=== PATIENT | female | born 1955 | race Caucasian/White ===

== ENCOUNTER 2024-12-17 08:54 | Outpatient (CLI) | payer MEDICARE, SELFPAY ==
--- OUTSIDE RECORDS SUMMARY | 2024-12-17 09:02 | XMS_ITS | Encounter Summary ---
Author Organization [employer] ([place], [place], [place], [place]) Address [address] [place] [address] Care Team Providers Care Director Service Name Role Phone Unavailable Primary Care Provider Unavailabl e Encounter Details Date Type Department Care Team (Late st Contact Info) Description 12/06/2019 Transcribed Document [facility] [place] [facility] [place] [address] ProviderWanda MD [address], [place] [id number] Social History Tobacco Use Types Packs/Day Years Used Date Smoking Tobacco: Never Assessed Comments Unknown Sex and Gender Information Value Date Recorded Sex Assigned at Female 10/30/2021 2:48 PM CDT Legal Sex Female 2:48 PM CDT Gender Identity Female 10/30/2021 2:48 PM CDT Sexual Orientation Not on file documented as of this encounter Miscellaneous Notes * Cerner Conversion Note - Wanda ProviderMD - 12/06/2019 12:40 PM CDT Spiritual Care Assessment Entered On: 12/06/2019 13:20 EDT Performed On: 12/06/2019 12:44 EDT by Feliciano Haile Chaplain-Non Cert General Information Referred by : Other: Pre-surgery Ministry Provided to : Patient Feliciano Haile Chaplain-Non Cert - 12/06/2019 13:19 EDT Spiritual Assessment Spiritual Assessment Comment/Summary Points : Supportive pre-surgery visit with patient. Spirital Assessment Comment/Summary Report : SPIRITUAL ASSESSMENT COMMENT/SUMMARY No qualifying data available. Feilciano Haile Chaplain-Non Cert - 12/06/2019 13:19 EDT Interventions Emotional Support : Empathic/Engaged listening, Feelings expressed Spiritual and Hindu : Spiritual/Hindu support provided Feliciano Haile Chaplain-Non Cert - 12/06/2019 13:19 EDT Electronically signed by Srikanth, Bin Conversion Sales Representative [employer] Cerner at 08/21/2022 11:58 AM CDT documented in this encounter Plan of Treatment Not on file documented as of this encounter Visit Diagnoses Not on filedocumented in this encounter
--- OUTSIDE RECORDS SUMMARY | 2024-12-17 09:02 | XMS_ITS | Encounter Summary ---
Author Organization [employer] ([place], [place], [place], [place]) Address [address] [place] [address] Care Team Providers Care Microfilm Duplicating Unit Supervisor Name Role Phone Unavailable Primary Care Provider Unavailabl e Encounter Details Date Type Department Care Team (Late st Contact Info) Description 12/07/2019 Transcribed Document [facility] Family Medicine [facility] [place] [address] ProviderWanda MD [address] [place] [address] Social History Tobacco Use Types Packs/Day Years Used Date Smoking Tobacco: Never Assessed Comments Unknown Sex and Gender Information Value Date Recorded Sex Assigned at Female 10/30/2021 2:48 PM CDT Legal Sex Female 2:48 PM CDT Gender Identity Female 10/30/2021 2:48 PM CDT Sexual Orientation Not on file documented as of this encounter Miscellaneous Notes * Cerner Conversion Note - Wanda ProviderMD - 12/07/2019 8:12 AM CDT [facility] Main OR PostOp Summary Primary Physician: GIULIA NELSON DPM-SUR Finalized Date/Time: 12/07/19 12:20:48 Pt. Name: FELI WILLIAM/Sex: 1955 Female Med Rec #: [id number] Physician: GIULIA NELSON DPM-SUR Financial #: [id number] Pt. Type: O Room/Bed: /1 Admit/Disch: 12/07/19 06:09:00 - Institution: [facility] Main OR PostOp Case Times Entry 1 In PACU II 12/07/19 11:05:00 Ready for PACU II 12/07/19 12:10:00 Discharge Discharge from PACU 12/07/19 12:10:00 II Last Modified By: Cristine Leary Rn 12/07/19 12:20:44 [facility] Main OR PostOp Case Times Audit 12/07/19 12:20:44 Senior Front End Developer: [id number] Modifier: [id number] <+> 1 In PACU II Finalized By: Cristine Leary, Rn Document Signatures Signed By: Cristine Leary Rn 12/07/19 12:20 Electronically signed by Srikanth [facility] Conversion Color Mixer Cerner at 08/21/2022 12:02 PM CDT documented in this encounter Plan of Treatment Not on file documented as of this encounter Visit Diagnoses Not on filedocumented in this encounter
--- OUTSIDE RECORDS SUMMARY | 2024-12-17 09:02 | XMS_ITS | Encounter Summary ---
Author Organization [employer] ([place], [place], [place], [place]) Address [address] [place] [address] Care Team Providers Care R D Internship Name Role Phone Unavailable Primary Care Provider Unavailabl e Encounter Details Date Type Department Care Team (Late st Contact Info) Description 12/07/2019 Transcribed Document [facility] [place] [facility] [place] [address] ProviderWanda MD [address] [place] [address] Social History Tobacco Use Types [...] Conversion Note - Wanda ProviderMD - 12/07/2019 6:10 AM CDT Patient: FELI WILLIAM Age: 64 years Sex: Female : 1955 Associated Diagnoses: None Author: HARRISON IZQUIERDO APRN Chief Complaint R foot pain/heel spur Review of Systems ROS reviewed as documented in chart no change since last seen by surgeon Health Status Allergies: Allergic Reactions (Selected) No Known Allergies, No qualifying data available Current medications: (Selected) Inpatient Medications Ordered Ancef: 2 Gram, 50 mL, 100 mL/Hr, IV Piggyback, PREOP Lactated Ringers Injection intravenous solution 1,000 mL: 20 mL/Hr, IntraVENous bupivacaine 550 mL: 6 mL/Hr, IntraLesional, Stop: 12/10/19 7:14:00 EDT lidocaine 1% preservative-free injectable solution: 0.5 mL, IntraDermal, 1-Time midazolam: 2 mg, IV Push, Q10Min, PRN: Anxiety Documented Medications Documented Metoprolol Succinate ER: 50 mg, Oral, At Bedtime, 0 Refill(s) Myrbetriq: 25 mg, Oral, Daily, 0 Refill(s) buPROPion 150 mg/12 hours (SR) oral tablet, extended release: 1 Tab, Oral, Daily, 0 Refill(s) esomeprazole 49.3 mg oral delayed release capsule: 1 Cap, Oral, Daily, PRN: indigest, 60 Cap, 0 Refill(s) ibuprofen: 800 mg, Oral, Q8H, PRN: as needed for arthritis, 0 Refill(s) zolpidem: 10 mg, Oral, At Bedtime, PRN: as needed for insomnia, 0 Refill(s), Home Medications (6) Active buPROPion 150 mg/12 hours (SR) oral tablet, extended release 150 mg = 1 Tab, Oral, Daily esomeprazole 49.3 mg oral delayed release capsule 49.3 mg = 1 Cap, PRN, Oral, Daily ibuprofen 800 mg, PRN, Oral, Q8H Metoprolol Succinate ER 50 mg, Oral, At Bedtime Myrbetriq 25 mg, Oral, Daily zolpidem 10 mg, PRN, Oral, At Bedtime , Medications (5) Active Scheduled: (2) ceFAZolin/D5w 2 Gram 50 mL, IV Piggyback, PREOP lidocaine 1% *PF* inj 2 mL 0.5 mL, IntraDermal, 1-Time Continuous: (2) bupivacaine 0.25% 550 mL , IntraLesional, 6 mL/Hr lactated ringers 1,000 mL 1,000 mL, IntraVENous, 20 mL/Hr PRN: (1) midazolam 1 mg/1 mL inj 2 mL 2 mg 2 mL, IV Push, Q10Min Problem list: All Problems Wears glasses / SNOMED CT 756645444 / Confirmed Seasonal allergies / SNOMED CT 7023201060 / Confirmed Incontinence / SNOMED CT 51589857 / Confirmed High blood pressure / SNOMED CT 84576739 / Confirmed Hiatal hernia / SNOMED CT 611012702 / Confirmed GERD - Gastro-esophageal reflux disease / SNOMED CT 0284467281 / Confirmed Diverticulitis / SNOMED CT 787365078 / Confirmed At risk for sleep apnea / IMO 21068638 / Confirmed Arthritis / SNOMED CT 4681126 / Confirmed Anxiety / SNOMED CT 61314999 / Confirmed, Active Problems (10) Anxiety Arthritis At risk for sleep apnea Diverticulitis GERD - Gastro-esophageal reflux disease Hiatal hernia High blood pressure Incontinence Seasonal allergies Wears glasses R foot pain/ heel spur Histories Past Medical History: No active or resolved past medical history items have been selected or recorded. Family History: No family history items have been selected or recorded. Procedure history: ureteroscopy. hysterectomy. lap cholecystectomy. BTL. TMJ. Physical Examination VS/Measurements Vital Signs/Vital Measures 12/07/2019 6:20 EDT Systolic Blood Pressure 139 mmHg Diastolic Blood Pressure 78 mmHg Temperature Source Temporal artery scanning Temperature Mode Fahrenheit Temperature, Fahrenheit 97.4 Deg F Heart Rate Monitored 69 bpm Respiratory Rate 20 Breaths/Min Oxygen Saturation 99 % Oxygen Therapy Mode Room air Vital Measurements Comment taken by John JIMENEZ and left for me to document per unit process 12/06/2019 12:26 EDT Blood Pressure Location Arm, right upper Blood Pressure Source Non-Invasive BP Device Blood Pressure Position Sitting Temperature Source Temporal artery scanning Temperature Mode Fahrenheit Temperature, Fahrenheit 96 Deg F LOW Clinical Temperature, C 35.6 Deg C Pulse Method Pulse Oximetry Peripheral Pulse Rate 70 bpm Oxygen Saturation 100 % Oxygen Therapy Mode Room air , Vitals Signs (last 24 hrs) Last Charted Minimum Maximum Temp 97.4 (DEC 06 06:20) L 96 (DEC 05:) 97.4 (DEC 06 06:20) Mon HR 69 (DEC 06 06:20) 69 (DEC 06 06:20) 69 (DEC 06 06:20) Periph HR 70 (DEC 05:26) 70 (DEC 05:) 70 (DEC 05:) Resp Rate 20 (DEC 06 06:20) 20 (DEC 06 06:20) 20 (DEC 06 06:20) SBP 139 (DEC 06 06:20) 139 (DEC 06 06:20) 139 (DEC 06 06:20) DBP 78 (DEC 06 06:20) 78 (DEC 06 06:20) 78 (DEC 06 06:20) SpO2 99 (DEC 06 06:20) 99 (DEC 06 06:20) 100 (DEC 05 12:26) , Measurements from flowsheet : Measurements 12/06/2019 12:26 EDT Height Source Measured Height Entry Format [place] Height/Length, OMANI (ft) 4 ft Height/Length OMANI 11.5 Inch CLINICALHEIGHT 151.13 cm [place] Body Weight 44 kg Weight Source Standing scale Weight Entry Format [place] Weight [place] lb 202 lb CLINICALWEIGHT 91.82 kg Body Surface Area (BSA) 1.86 m2 Body Mass Index 40.2 kg/m2 >HHI General: Alert and oriented, No acute distress, morbid obesity. Eye: Pupils are equal, round and reactive to light, Extraocular movements are intact, glasses/strabismus L eye. HENT: Normocephalic, Normal hearing. Neck: Supple, Non-tender. Respiratory: Lungs are clear to auscultation, Respirations are non-labored. Cardiovascular: Normal rate, Regular rhythm, No murmur, No gallop, No edema. Gastrointestinal: Soft, Non-tender. Genitourinary: No costovertebral angle tenderness. Lymphatics: No lymphadenopathy neck, axilla, groin. Musculoskeletal: Normal strength, painful ROM R heel. Integumentary: Warm, Dry, abrasion R middle finger with bandaid POA. Neurologic: Alert, Oriented. Psychiatric: Cooperative, Appropriate mood & affect. Review / Management Results review: Labs (Last four charted values) WBC 6.5 (DEC 05) HB 13.8 (DEC 05) HCT 41.9 (DEC 05) Plt 236 (DEC 05) Na 140 (DEC 05) K 4.1 (DEC 05) Cl 109 (DEC 05) CO2 30 (DEC 05) BUN 12 (DEC 05) Cr 0.80 (DEC 05) Glu R 94 (DEC 05) Ca 9.0 (DEC 05) AST 20 (DEC 05) ALT 30 (DEC 05) ALK P 84 (DEC 05) T Bili 0.7 (DEC 05) PTN 7.5 (DEC 05) ALB 3.8 (DEC 05) , Lab results 12/06/2019 12:49 EDT Sodium Level 140 mmol/L Potassium Level 4.1 mmol/L Chloride Level 109 mmol/L Carbon Dioxide Level 30 mmol/L Anion Gap 5 LOW Glucose Level 94 mg/dL Blood Urea Nitrogen 12 mg/dL CREATININE 0.80 mg/dL eGFR >60 mL/min/1.73m2 eGFR NonAfrican >60 mL/min/1.73m2 Bun/Creatinine 15.0 Calcium Level 9.0 mg/dL Protein Total 7.5 Gram/dL Albumin Level 3.8 Gram/dL Globulin 3.7 Gram/dL A/G Ratio 1.0 LOW Bilirubin Total 0.7 mg/dL Alk Phos 84 Units/Liter AST 20 Units/Liter ALT 30 Units/Liter WBC 6.5 K/uL RBC 4.56 Million/uL Hgb 13.8 g/dL Hct 41.9 % MCV 91.9 fL MCH 30.3 pg MCHC 32.9 Gram/dL Platelet Count 236 K/uL MPV 10.9 fL RDW 14.2 % Neut % 59.8 % Neut # 3.89 K/uL Lymph % 27.0 % Lymph # 1.76 x10(3)/uL Morgan % 9.8 % HI Morgan # 0.64 K/uL Eos % 2.9 % Eos # 0.19 x10(3)/uL Baso % 0.3 % Baso # 0.02 x10(3)/uL Slide Review No IG# 0.01 x10(3)/uL IG% 0.20 % . Impression and Plan Condition: Stable. documented in this encounter Plan of Treatment Not on file documented as of this encounter Visit Diagnoses Not on filedocumented in this encounter
--- OUTSIDE RECORDS SUMMARY | 2024-12-17 09:02 | XMS_ITS | Encounter Summary ---
Author Organization [employer] ([place], [place], [place], [place]) Address [address] [place] [address] Care Team Providers Care Wall Mirror Department Supervisor Name Role Phone Unavailable Primary Care Provider Unavailabl e Encounter Details Date Type Department Care Team (Late st Contact Info) Description 12/07/2019 Transcribed Document [facility] [place] [facility] [place] [address] ProviderWanda MD [address] [place] [address] Social History Tobacco Use Types [...] Wanda ProviderMD - 12/07/2019 8:12 AM CDT [facility] Main OR PACU Summary Primary Physician: GIULIA NELSON DPM-SUR Finalized Date/Time: 12/07/19 11:22:34 Pt. Name: FELI WILLIAM/Sex: 1955 Female Med Rec #: [id number] Physician: GIULIA NELSON DPM-SUR Financial #: [id number] Pt. Type: O Room/Bed: /1 Admit/Disch: 12/07/19 06:09:00 - Institution: [facility] Main OR PACU I Case Times Entry 1 In PACU I 12/07/19 09:37:00 Ready for PACU 12/07/19 10:15:00 Discharge Discharge from PACU 12/07/19 11:00:00 I Last Modified By: NOEL MULLEN RN 12/07/19 11:22:01 [facility] Main OR PACU Acuity Entry 1 Start Time 12/07/19 10:15:00 Stop Time 12/07/19 11:00:00 Acuity Level [facility] PACU Acuity I Last Modified By: NOEL MULLEN RN 12/07/19 11:22:31 Finalized By: NOEL MULLEN, RN Document Signatures Signed By: NOEL MULLEN RN 12/07/19 11:22 Electronically signed by Srikanth [facility] Conversion Survey Manager Cerner at 08/21/2022 12:11 PM CDT documented in this encounter Plan of Treatment Not on file documented as of this encounter Visit Diagnoses Not on filedocumented in this encounter
--- OUTSIDE RECORDS SUMMARY | 2024-12-17 09:02 | XMS_ITS | Encounter Summary ---
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 Phone Unavailable Primary Care Provider Unavailabl e Encounter Details Date Type Department Care Team (Late st Contact Info) Description 12/07/2019 Transcribed Document [facility] [place] [facility] [place] [address] ProviderWanda MD [address] [place] [address] Social History Tobacco Use Types Packs/Day Years Used Date Smoking Tobacco: Never Assessed Comments Unknown Sex and Gender Information Value Date Recorded Sex Assigned at Female 10/30/2021 2:48 PM CDT Legal Sex Female 2:48 PM CDT Gender Identity Female 10/30/2021 2:48 PM CDT Sexual Orientation Not on file documented as of this encounter Miscellaneous Notes * Cerner Conversion Note - Wanda Gee MD - 12/07/2019 11:56 AM CDT Patient Education Materials Follows: General Anesthesia, Adult, Care After This sheet gives you information about how to care for yourself after your procedure. Your health care provider may also give you more specific instructions. If you have problems or questions, contact your health care provider. What can I expect after the procedure? After the procedure, the following side effects are common: ??? Pain or discomfort at the IV site. ??? Nausea. ??? Vomiting. ??? Sore throat. ??? Trouble concentrating. ??? Feeling cold or chills. ??? Weak or tired. ??? Sleepiness and fatigue. ??? Soreness and body aches. These side effects can affect parts of the body that were not involved in surgery. Follow these instructions at home: For at least 24 hours after the procedure: ??? Have a responsible adult stay with you. It is important to have someone help care for you until you are awake and alert. ??? Rest as needed. ??? Do not: ? Participate in activities in which you could fall or become injured. ? Drive. ? Use heavy machinery. ? Drink alcohol. ? Take sleeping pills or medicines that cause drowsiness. ? Make important decisions or sign legal documents. ? Take care of children on your own. Eating and drinking ??? Follow any instructions from your health care provider about eating or drinking restrictions. ??? When you feel hungry, start by eating small amounts of foods that are soft and easy to digest (bland), such as toast. Gradually return to your regular diet. ??? Drink enough fluid to keep your urine pale yellow. ??? If you vomit, rehydrate by drinking water, juice, or clear broth. General instructions ??? If you have sleep apnea, surgery and certain medicines can increase your risk for breathing problems. Follow instructions from your health care provider about wearing your sleep device: ? Anytime you are sleeping, including during daytime naps. ? While taking prescription pain medicines, sleeping medicines, or medicines that make you drowsy. ??? Return to your normal activities as told by your health care provider. Ask your health care provider what activities are safe for you. ??? Take mbva-qbr-ciqtehl and prescription medicines only as told by your health care provider. ??? If you smoke, do not smoke without supervision. ??? Keep all follow-up visits as told by your health care provider. This is important. Contact a health care provider if: ??? You have nausea or vomiting that does not get better with medicine. ??? You cannot eat or drink without vomiting. ??? You have pain that does not get better with medicine. ??? You are unable to pass urine. ??? You develop a skin rash. ??? You have a fever. ??? You have redness around your IV site that gets worse. Get help right away if: ??? You have difficulty breathing. ??? You have chest pain. ??? You have blood in your urine or stool, or you vomit blood. Summary ??? After the procedure, it is common to have a sore throat or nausea. It is also common to feel tired. ??? Have a responsible adult stay with you for the first 24 hours after general anesthesia. It is important to have someone help care for you until you are awake and alert. ??? When you feel hungry, start by eating small amounts of foods that are soft and easy to digest (bland), such as toast. Gradually return to your regular diet. ??? Drink enough fluid to keep your urine pale yellow. ??? Return to your normal activities as told by your health care provider. Ask your health care provider what activities are safe for you. This information is not intended to replace advice given to you by your health care provider. Make sure you discuss any questions you have with your health care provider. Document Released: 07/28/2001 Document Revised: 04/24/2018 Document Reviewed: 12/05/2017 [employer] Patient Education ? 2020 [employer] Achilles Tendon Tear Repair, Care After This sheet gives you information about how to care for yourself after your procedure. Your health care provider may also give you more specific instructions. If you have problems or questions, contact your health care provider. What can I expect after the procedure? After the procedure, it is common to have: ??? Numbness in your foot. This should go away within 24 hours. ??? Pain. It may take 6 months before you can return to your regular activity level. However, complete recovery can take a year or longer. Follow these instructions at home: If you have a splint: ??? Wear the splint as told by your health care provider. Remove it only as told by your health care provider. ??? Loosen the splint if your toes tingle, become numb, or turn cold and blue. ??? Keep the splint clean. ??? If the splint is not waterproof: ? Do not let it get wet. ? Cover it with a watertight covering when you take a bath or a shower. If you have a cast: ??? Do not put pressure on any part of the cast or splint until it is fully hardened. This may take several hours. ??? Do not stick anything inside the cast to scratch your skin. Doing that increases your risk of infection. ??? Check the skin around the cast every day. Tell your health care provider about any concerns. ??? You may put lotion on dry skin around the edges of the cast. Do not put lotion on the skin underneath the cast. ??? Keep the cast clean. ??? If the cast is not waterproof: ? Do not let it get wet. ? Cover it with a watertight covering when you take a bath or a shower. Incision care ??? Follow instructions from your health care provider about how to take care of your incision. Make sure you: ? Wash your hands with soap and water before you change your bandage (dressing). If soap and water are not available, use hand industrial sales engineer. ? Change your dressing as told by your health care provider. ? Leave stitches (sutures) or pawel in place. These skin closures may need to stay in place for 2 weeks or longer. ??? Check your incision area every day for signs of infection. Check for: ? Redness, swelling, or pain. ? Fluid or blood. ? Warmth. ? Pus or a bad smell. Medicines ??? Take pain medicines only as told by your health care provider. ??? Do not take hagr-far-eqtjzeh medicines unless your health care provider says it is okay. ??? To prevent or treat constipation while you are taking prescription pain medicine, your health care provider may recommend that you: ? Drink enough fluid to keep your urine clear or pale yellow. ? Take ycfy-ifn-fyyoaqg or prescription medicines. ? Eat foods that are high in fiber, such as fresh fruits and vegetables, whole grains, and beans. ? Limit foods that are high in fat and processed sugars, such as fried and sweet foods. Activity ??? Do not walk on or put weight on your injured leg. ??? Use crutches or another walking aid. ??? Follow your health care provider's instructions on how to move your ankle and how much weight you can put on your leg. If you have a cast or splint, you should receive these instructions after it is removed. ??? Follow your rehabilitation plan. Do exercises as told by your health care provider or physical therapist. Between 2?6 weeks after surgery, your surgeon may recommend: ? Putting some weight on your leg while wearing your walking boot or cast. ? Doing ankle motion exercises. ??? Around 6 weeks after surgery, your surgeon may recommend: ? Putting some weight on your leg without the assistance of a boot or cast. ? Starting physical therapy to improve ankle motion and to strengthen muscles in your leg. ??? Avoid stretching your Achilles tendon for at least 6 months or as told by your physical therapist. ??? Do not return to physical activity or sports until you are cleared by your health care provider or physical therapist. Driving ??? Do not drive or operate heavy machinery while taking prescription pain medicine. ??? If you have a cast, splint, or boot on your leg, ask your health care provider when it is safe for you to drive. General instructions ??? Raise (elevate) your leg above the level of your heart while you are sitting or lying down. ??? Do not take baths, swim or use a hot tub until your health care provider approves. ??? If directed, put ice on the injured area: ? If you have a removable splint, remove it as told by your health care provider. ? Put ice in a plastic bag. ? Place a towel between your skin and the bag. ? Leave the ice on for 20 minutes, 2?3 times a day. ??? See a physical therapist if directed by your health care provider. A physical therapist can help you regain ankle motion and strengthen your leg muscles. ??? Keep all follow-up visits as told by your health care provider. This is important. If you have a cast or splint, you should see your health care provider about 2 weeks after surgery to have it removed. If you have stitches, your health care provider will also take them out during this time. Contact a health care provider if: ??? You have chills. ??? You have a fever. ??? Your pain medicine is not working. ??? You have persistent numbness or burning. ??? You have redness, swelling, or pain around your incision. ??? You have fluid or blood coming from your incision. ??? Your incision feels warm to the touch. ??? You have pus or a bad smell coming from your incision. ??? You feel like your cast or splint is too tight. ??? You are unable to wiggle your toes. ??? You have a cast or splint and have increased pain. ??? You have numbness or tingling in your foot or toes. ??? You notice cracks or soft spots on your cast. Get help right away if: ??? You have swelling, pain, or numbness that is getting worse. ??? You are bleeding through your cast or splint. ??? You have chest pain. ??? You have trouble breathing. Summary ??? After your procedure, it is common to have pain and numbness in your foot. Numbness should go away within 24 hours after surgery. ??? If you have a splint, loosen it if your toes tingle, become numb, or turn cold and blue. Keep the splint clean and dry. ??? If you have a cast, do not put pressure on it until it hardens. To avoid infections, do not stick objects under the cast to scratch the skin and do not put lotion under the cast. Keep the cast clean and dry. ??? Follow your health care provider's instructions about caring for your incision, avoiding some activities, taking medicines, and keeping follow-up visits. This information is not intended to replace advice given to you by your health care provider. Make sure you discuss any questions you have with your health care provider. Document Released: 12/25/2004 Document Revised: 02/18/2019 Document Reviewed: 04/04/2017 [employer] Patient Education ? 2020 [employer] documented in this encounter Plan of Treatment Not on file documented as of this encounter Visit Diagnoses Not on filedocumented in this encounter
--- OUTSIDE RECORDS SUMMARY | 2024-12-17 09:02 | XMS_ITS | Clinical Summary ---
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 90 tablet 1 7 Active acyclovir (ZOVIRAX) 800 MG tablet Take 1 tablet by mouth 3 (Three) Times a Day. X 5 days as needed 60 tablet 2 7 Active vitamin D (ERGOCALCIFEROL) 97908 units capsule capsuleIndicatio ns:Vitamin D deficiency TAKE ONE CAPSULE BY MOUTH EVERY WEEK 4 capsule 8 Active mupirocin (BACTROBAN) 2 % ointmentIndicati ons:Impetigo Apply topically to the appropriate area as directed 3 (Three) Times a Day. 22 g 9 Active buPROPion SR (WELLBUTRIN SR) 150 MG 12 hr tablet Take 1 tablet by mouth 2 (Two) Times a Day. 60 tablet 5 9 Active hydrOXYzine (ATARAX) 25 MG tabletIndication s:Cellulitis of left upper extremity Take 1 tablet by mouth 3 (Three) Times a Day As Needed for Itching. 30 tablet 9 Active Mirabegron ER (MYRBETRIQ) 25 MG tablet sustained-releas e 24 hour 24 hr tablet Take 1 tablet by mouth Daily. 30 tablet 0 Active conjugated estrogens (PREMARIN) 0.625 MG/GM vaginal creamIndications :Vaginal atrophy Insert 1.0 grams intravaginally, twice a week 30 g 3 0 Active Vortioxetine HBr (Trintellix) 10 MG tabletIndication s:Depression with anxiety Take 10 mg by mouth Daily. 30 tablet 2 0 Active [employer] D3 50 MCG (2000 UT) capsuleIndicatio ns:Vitamin D deficiency TAKE 2,000 UNITS BY MOUTH DAILY. 30 capsule 1 0 Active IBU 800 MG tabletIndication s:Chronic pain of both knees TAKE 1 TABLET EVERY 8 HOURS NEEDED FOR MILD PAIN 180 tablet 1 Active zolpidem (AMBIEN) 10 MG tabletIndication s:Primary insomnia Take 1 tablet by mouth At Night As Needed for Sleep. 90 tablet 1 Active metoprolol succinate XL (TOPROL-XL) 50 MG 24 hr tabletIndication s:Essential hypertension TAKE 1 TABLET EVERY DAY 90 tablet 2 Active esomeprazole (nexIUM) 40 MG capsuleIndicatio ns:Gastroesophag eal reflux disease Take 1 capsule by mouth Before Breakfast. 90 capsule 2 Active Active Problems Problem Noted Date Diagnosed Date Menopause 10/09/2017 Vaginal atrophy 10/09/2017 Urethrocele, female 10/09/2017 MALATHI (stress urinary incontinence, female) 2017 Vitamin D deficiency 03/15/2016 Depression 03/15/2016 Assessment & Plan (05/09/2016 4:34 PM EST): Rec take the Wellbutrin BID and see if helps. Call if not better or side effects Anxiety 03/15/2016 Urinary tract infection without hematuria 2015 Vulvar candidiasis 10/18/2015 Encounter for removal of sutures 10/18/2015 Essential hypertension 09/22/2015 Assessment & Plan (05/09/2016 4:34 PM EST): Hypertension is improving with treatment. Continue current treatment regimen. Continue current medications. Blood pressure will be reassessed at the next regular appointment. Insomnia 09/22/2015 Immunizations Immunization Administration Dates Next Due Hepatitis A 05/06/2019 flucelvax quad pfs =>4 YRS 03/25/2019 Family History Medical History Relation Name Comments Heart attack Brother Cancer Father Heart attack Mother Hypertension Mother Atrial fibrillation Sister 1 Heart attack Sister 2 Relation Name Status Comments Brother Father Mother Sister 1 Sister 2 Social History Tobacco Use Types Packs/Day Years Used Date Smoking Tobacco: Never Smokeless Tobacco: Never Alcohol Use Standard Drinks/Week Comments No 0 (1 standard drink = 0.6 oz pur e alcohol) PHQ-2 Answer Date Recorded PHQ-2 Score 7 12/08/2018 Abuse Screen Answer Date Recorded Unsafe at Home or Work/School Not on file Feels Threatened by Someone? Not on file 01/2023 Does Anyone Keep You from Co ntacting Others or Doint Things Outside the Home? Not on file 02/10/2023 Physical Sign of Abuse Present Not on file 1 Housing Stability Answer Date Recorded Current Living Arrangements Not on file 01/2023 Potentially Unsafe Housing Conditions Not on michelle e 02/10/2023 Family and Community Support Answer Justin e Recorded Help with Day-to-Day Activities Not on file 02/10/2023 Lonely or Isolated Not on file 02/10/2023 Employment Answer Date Recorded Do you want help finding or keeping work or a casper b? Not on file 02/10/2023 Disabilities Answer Date Recorded Concentrating, Remembering, or Making Decisions Difficulty Not on file 02/10/2023 Doing Errands Independently Difficulty Not on fi le 02/10/2023 Education Answer Date Recorded Help with school or training? Not on file Preferred Language Not on file 02/10/2023 Comments No Sex and Gender Information Value Date Recorded Sex Assigned at Not on file Legal Sex Female 11:38 AM EDT Gender Identity Not on file Sexual Orientation Not on file Last Filed Vital Signs Vital Sign Reading Time Taken Comments Blood Pressure 126/76 07/12/2019 9:14 AM EDT Pulse 76 07/12/2019 9:14 AM EDT Temperature 36.3 C (97.4 F) 07/12/2019 9:14 AM EDT Respiratory Rate 18 07/12/2019 9:14 AM EDT Oxygen Saturation 99% 03/25/2019 11:55 AM EST Inhaled Oxygen Concentration - - Weight 93.4 kg (206 lb) 07/12/2019 9:14 AM EDT Height 152.4 cm (5') 07/12/2019 9:14 AM EDT Body Mass Index 40.23 07/12/2019 9:14 AM EDT Plan of Treatment Health Maintenance Due Date Last Done Comments DXA SCAN 1956 TDAP/TD VACCINES (1 - Tdap) 10/13/1975 COLOGUARD 2001 COLON CANCER SCREENING 5 YEA R SIGMOIDOSCOPY 2001 CT COLONOGRAPHY 2001 FECAL OCCULT BLOOD TEST 2001 FIT Testing (1 year) 2001 Pneumococcal Vaccine 50+ (1 of 1 - PCV) 2006 ZOSTER VACCINE (1 of 2) 2006 COLONOSCOPY 05/05/2015 05/05/2005 COLORECTAL CANCER SCREENING 05/05/2015 ANNUAL PHYSICAL 08/31/2015 HEPATITIS C SCREENING 08/31/2015 MAMMOGRAM 05/20/2016 05/20/2014 COVID-19 Vaccine ( season) 2024 INFLUENZA VACCINE 02/02/2025 03/25/2019, , 07/09/2018 (Declined) Procedures Procedure Name Priority Date/Time Associated Diagnosis Comments SCANNED - INFLUENZA 03/25/2019 MAMMO SCREENING BILATERAL W CAD Routine 05/20/2014 10:03 AM EST from Last 3 Months or Most Recently Relevant to Health Maintenance Results * SCANNED - INFLUENZA (03/25/2019) [facility] [place] CHART REVIEW TABS Final Re sult * MAMMOGRAPHY SCREENING BILATERAL (05/20/2014 10:03 AM EST) Anatomical Region Laterality Modality Breast Bilateral Mammography 05/20/2014 10:0 3 AM EST Narrative 05/20/2014 12:40 PM EST HISTORY: Screening Mammography. Prior mammograms are not available for comparison Low Dose full field Digital Breast Tomosynthesis examination was performed with 2D and 3D acquisitions. Examination is read in conjunction with computer aided detection. FINDINGS: There are scattered areas of fibroglandular density. No suspicious masses, microcalcifications or areas of architectural distortion are present. IMPRESSION- Negative bilateral mammogram. RECOMMENDATION: Continue annual screening mammography. BI-RADS CATEGORY I, NEGATIVE. CAD was utilized. The standard false-negative rate of mammography is between 10 and 25%. Complex patterns or increased breast density will markedly elevate the false-negative rate of mammography. A letter, in lay terminology, with the results of this exam will be mailed to the patient. Reading Radiologist- CADE QUIGLEY Releasing Radiologist- CADE QUIGLEY Released Date Time- 05/20/14 1242 [employer] 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
--- OUTSIDE RECORDS SUMMARY | 2024-12-17 09:02 | XMS_ITS | Encounter Summary ---
Author Organization [employer] ([place], [place], [place], [place]) Address [address] [place] [address] Care Team Providers Care [employer] Name Role Phone Unavailable Primary Care Provider Unavailabl e Encounter Details Date Type Department Care Team (Late st Contact Info) Description 12/07/2019 Transcribed Document [facility] [place] [facility] [place] [address] ProviderWanda MD [address] [place] [id number] Social History Tobacco Use Types Packs/Day [...] Conversion Note - Wanda ProviderMD - 12/07/2019 9:52 AM CDT Patient: FELI WILLIAM Age: 64 Years Sex: Female : 1955 *Operation Resection of retrocalcaneal exostosis with detachment and reattachment of achilles tendon right foot and application of allograft Resection of retrocalcaneal bursa right foot Indication for Surgery This 64-year-old female patient presented to clinic with long-standing history of pain to her right calcaneus and achilles tendon. She had tried several conservative measures including modifying activity, physical therapy, anti-inflammatories and immobilization, as well as modifying shoe gear. She underwent radiographs and MRI which demonstrated a Angy's exostosis to her right calcaneus with tendonitis to the achilles tendon. I discussed with her conservative and surgical treatment options in detail. I discussed with her the risks and benefits of each treatment option. I discussed the complications of each treatment option. All questions were answered. No guarantees were given. She has elected for surgical intervention for correction of this problem. She presents today for resection of the exostosis. Physical exam: Vascular: DP and PT pulses palpable +2 out of 4 to bilateral feet. Capillary refill time is noted to be brisk to the digits of bilateral feet. Dermatological: No open lesions noted. Mild diffuse edema is noted to bilateral lower extremities. Neurological: Protective sensation grossly intact to bilateral lower extremities. Light touch sensation is noted to bilateral lower extremities. Musculoskeletal: Pain on palpation noted to the posterior aspect of the right calcaneus at the posterior superior aspect. Exostosis is noted on palpation to the posterior superior calcaneus. Pain on palpation to the insertion of the Achilles tendon the right foot. All lower extremity muscle groups rate +5 out of 5 in strength to bilateral lower extremities. 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 I discussed and reviewed all possible risks, benefits and complications of the procedure. All questions were answered. No guarantees were given. The consent was signed and charted. The operative foot was confirmed and marked. In the preoperative area, the patient then received a popliteal nerve block to the right lower extremity. Following administration of the block, the patient was transported from the preoperative holding area to the operating room and placed in the operative room table. General anesthesia was administered by the anesthesiologist. The patient was then placed in the prone position on the OR table. A pneumatic thigh tourniquet was applied over copious amounts of padding just above the right thigh. The right lower extremity was then prepped using ChloraPrep and draped in normal sterile fashion. Timeout was called and the patient and the procedure were confirmed. Right lower extremity was then elevated and exsanguinated using an Esmarch and the pneumatic thigh tourniquet was inflated to 300 mmHg. At this time attention was directed to the posterior aspect of the right foot and ankle where there is noted to be a prominent exostosis on palpation. The exostosis was again confirmed using intraoperative fluoroscopy. Next utilizing a 15 blade, a linear incision was made approximate 5 Center meters in length along the lateral aspect of the Achilles tendon traversing medially and then traversing again linearly at the medial aspect the calcaneus. Care was taken to cauterize all bleeders as deemed necessary. All neurovascular structures were handled with care. A delicate dissection was then carried out using combination of blunt and sharp dissection and retraction was utilized by suturing skin in a no touch technique. Dissection was then carried out to the level of the Achilles tendon. At this time, using a 15 blade, the peritenon was carefully dissected out medially and laterally off of the Achilles tendon. Next utilizing a 15 blade, the Achilles tendon was cut centrally and then split in a curtain approach medially and laterally carefully removing it from the posterior superior aspect of the calcaneus. On visualization, there is noted to be a prominent exostosis in the posterior superior lateral aspect of the calcaneus. There is also noted to be a prominent retrocalcaneal bursa which was carefully dissected and removed. This is passed the back table be sent for pathological analysis. Utilizing an osteotome and mallet, the exostosis was carefully resected, then freed from soft tissue and passed the back table. Following this, the bony contours of the calcaneus were smoothed to an even finish using the reciprocating rasp. The incision site was irrigated with copious amounts of sterile saline solution. There is noted to be smooth bony contours and this was confirmed using intraoperative fluoroscopy. Next, the Achilles tendon was carefully re-anchored to the calcaneus utilizing the Arthrex speed bridge technique and fiber tape. Utilizing this, anchors were drilled and placed into the posterior aspect of the calcaneus and then the Achilles tendon was brought to appropriate tension before being firmly anchored into the posterior aspect of the calcaneus. There is noted to be free and smooth range of motion when the ankle joint was put through range of motion after re-anchoring the Achilles tendon. Incision site was again irrigated with copious amounts of sterile saline solution. The allograft was then utilized and carefully sutured into the Achilles tendon at the repair site using 3-0 Vicryl. 100% of the allograft was utilized and 0% of the allograft was wasted. At this time the incision site was deemed adequate for closure. A centralized portion of the Achilles tendon was repaired utilizing 2-0 Vicryl. The peritenon was repaired using 3-0 Vicryl. Subcutaneous tissues reapproximated using 3-0 Vicryl. Skin was reapproximated using 3-0 Prolene. Incision site was then dressed using silver dressing, 4 x 4 gauze and Kerlix to the right foot. The pneumatic thigh tourniquet was then deflated and instantaneous perfusion was noted to the digits of the right foot. At this time in the perioperative area, a posterior splint was applied over copious amounts of padding to the right lower extremity. The patient was then awoken from anesthesia and tolerated the procedure and anesthesia well. The patient was then transported to the postoperative area vital signs stable and vascular status intact. In the postoperative area the patient received oral and written postoperative instructions. The patient will remain nonweightbearing all times to the right foot using a scooter and crutches. The patient will follow-up in my office in 1 week. Anesthesia General ADONIS DELGADO MD-ANS (Anesthesiologist) General ADONIS DELGADO MD-ANS (Anesthesiologist) *Estimated Blood Loss 10 cc *Findings Hemostasis: Thigh tourniquet 300 mm hg Materials: Arthrex speed bridge system, Stravix allograft 3 x 6 cm Injectable: None *Specimen(s) Retrocalcaneal bursa right foot Complications None Technique Condition: stable Date of Service Date/Time of Service SN - Proc - Start Time: 12/07/19 08:12:00 (12/07/19 08:13:26) SN - Proc - Start Time: 12/07/19 08:12:00 (12/07/19 08:13:26) documented in this encounter Plan of Treatment Not on file documented as of this encounter Visit Diagnoses Not on filedocumented in this encounter
--- OUTSIDE RECORDS SUMMARY | 2024-12-17 09:02 | XMS_ITS | Clinical Summary ---
Author Organization [employer] ([place], [place], [place], [place]) Address [address] [place] [address] Care Team Providers Care Head Worker Name Role Phone Unavailable Primary Care Provider Unavailabl e Social History Tobacco Use Types Packs/Day Years Used Date Smoking Tobacco: Never Assessed Comments Unknown Sex and Gender Information Value Date Recorded Sex Assigned at Female 10/30/2021 2:48 PM CDT Legal Sex Female 2:48 PM CDT Gender Identity Female 10/30/2021 2:48 PM CDT Sexual Orientation Not on file Plan of Treatment Not on file
--- OUTSIDE RECORDS SUMMARY | 2024-12-17 09:02 | XMS_ITS | Encounter Summary ---
Author Organization [employer] ([place], [place], [place], [place]) Address [address] [place] [address] Care Team Providers Care Manager Child Name Role Phone Unavailable Primary Care Provider Unavailabl e Encounter Details Date Type Department Care Team (Late st Contact Info) Description 12/06/2019 Transcribed Document [facility] [place] Medicine [facility] [place] [address] ProviderWanda MD [address] [place] [address] Social History Tobacco Use Types Packs/Day Years Used Date Smoking Tobacco: Never Assessed Comments Unknown Sex and Gender Information Value Date Recorded Sex Assigned at Female 10/30/2021 2:48 PM CDT Legal Sex Female 2:48 PM CDT Gender Identity Female 10/30/2021 2:48 PM CDT Sexual Orientation Not on file documented as of this encounter Miscellaneous Notes * Cerner Conversion Note - Historical ProviderMD - 12/06/2019 12:26 PM CDT PAT Adult Entered On: 12/06/2019 12:40 EDT Performed On: 12/06/2019 12:26 EDT by MEREDITH FELIX RN Vital Measurements Temperature Source : Temporal artery scanning Temperature Mode : Fahrenheit Temperature, Fahrenheit : 96 Deg F (LOW) Clinical Temperature, C : 35.6 Deg C Pulse Method : Pulse Oximetry Peripheral Pulse Rate : 70 bpm Blood Pressure Location : Arm, right upper Blood Pressure Source : Non-Invasive BP Device Blood Pressure Position : Sitting Oxygen Saturation : 100 % Oxygen Therapy Mode : Room air MEREDITH FELIX RN - 12/06/2019 13:07 EDT Pain Assessment Pain Assessment : Initial assessment Pain Scale Goal : 6 MEREDITH FELIX RN - 12/06/2019 13:07 EDT Height and Weight, Clinical Dosing Height Source : Measured Height Entry Format : [place] Height, Feet : 4 ft(Converted to: 122 cm, 48 Inch) Height, Inches : 11.5 Inch(Converted to: 0 ft 12 Inch, 29.21 cm) Clinical Height : 151.13 cm Weight Source : Standing scale Weight Entry Format : [place] Clinical Dosing Weight : 91.82 kg Weight, Pounds : 202 lb Body Surface Area (BSA) : 1.86 m2 Body Mass Index : 40.2 kg/m2 (>HHI) [place] Body Weight : 44 kg MEREDITH FELIX RN - 12/06/2019 12:26 EDT Health Histories Smoking Status : Never (less than 100 in lifetime; none in last 30 days) Smokeless Tobacco Status : Never MEREDITH FELIX RN - 12/06/2019 12:26 EDT Social History (As Of: 12/06/2019 12:40:46 EDT) Tobacco: Never (less than 100 in lifetime) Smoking Status. Never Smokeless Tobacco Status. None Smokeless Tobacco Use History. (Last Updated: 12/06/2019 12:27:45 EDT by MEREDITH FELIX RN) Alcohol: Alcohol Use History No. (Last Updated: 12/06/2019 12:27:50 EDT by MEREDITH FELIX RN) Substance Abuse: Drug Use Hx: No. Use in Last 12 Months: No. (Last Updated: 12/06/2019 12:27:55 EDT by MEREDITH FELIX RN) Home/Environment: Lives with Spouse. Living situation: Home/Independent. (Last Updated: 12/06/2019 12:31:33 EDT by MEREDITH FELIX RN) Infectious Disease History Has the patient ever been tested for COVID-19? : Yes, Patient stated results Negative Where was the COVID-19 Testing completed? : [facility] Date of COVID-19 test known? : Yes Does patient have symptoms of COVID-19? : No COVID19 Screening : No Experiencing Infectious Disease Symptoms : No symptoms Physical contact outside [place] in the last 30 days : No Infectious Disease History : Chicken pox/Shingles Tuberculosis Symptoms : None MEREDITH FELIX RN - 12/06/2019 12:26 EDT COVID19 PreProcedure Screening Is this an Emergent or Add on Procedure? : No MEREDITH FELIX RN - 12/06/2019 12:26 EDT Anesthesia/Transfusion History Family History of Anesthesia Reaction : Prior transfusion without reaction Blood Transfusion Acceptable to Patient : Yes Transfusion History : Prior anesthesia reaction Type of Anesthesia Reaction : Excessive somnolence Family History of Anesthesia Reaction : None MEREDITH FELIX RN - 12/06/2019 12:26 EDT Functional Assessment Functional ADL Evaluation Index EBN Bathing : Independent (2) Dressing : Independent (2) Toileting : Independent (2) Transferring Bed or Chair : Independent (2) Continence : Independent (2) Feeding : Independent (2) MEREDITH FELIX RN - 12/06/2019 12:26 EDT ADL Index Score : 12 MEREDITH FELIX RN - 12/06/2019 12:26 EDT Advance Directive Patient has Advance Directive *Q : No, patient refuses Advance Directive information MEREDITH FELIX RN - 12/06/2019 12:26 EDT Spiritual/Cultural Needs Any Spiritual/Cultural Needs or Requests : Yes Spiritual/Cultural Needs Comment : Surgery on Dec 06 in at 0600 am Spiritual/Cult Concerns/Desires/Needs : Prayer Spiritual/Cultural Needs Comment : Surgery on Dec 06 in at 0600 am MEREDITH FELIX RN - 12/06/2019 12:26 EDT [place] Suicide Severity Rating Scale (C-SSRS) CSSRS Past Month Wish to be : No CSSRS Past Month Suicidal Thoughts : No CSSRS Lifetime Suicide Behavior : No Suicide Severity Rating Score : 0 Suicide Severity Rating : No Additional Care Required at this time MEREDITH FELIX RN - 12/06/2019 12:26 EDT Psychosocial History Currently in Unsafe Situation : No MEREDITH FELIX RN - 12/06/2019 12:26 EDT Education Topics, Periop Preadmission Perioperative Education Grid Arrival Time/Place : Verbalizes understanding Falls : Verbalizes understanding Infection Control : Verbalizes understanding IV's : Verbalizes understanding NPO Status/Directions : Verbalizes understanding Pain Management : Verbalizes understanding Preprocedure Preparations : Verbalizes understanding Preprocedure Tests/Labs : Verbalizes understanding Remove Body Piercings : Verbalizes understanding Responsible Adult : Verbalizes understanding Take/Hold Medications Pre-Procedure : Verbalizes understanding MEREDITH FELIX RN - 12/06/2019 12:26 EDT General Info Arrived From : Home Mode of Arrival on Unit : Ambulatory Legal Guardian : Spouse 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 Support Person/Pt Rep Name : Pelon William spouse Support Person/Pt Rep Contact Information : [phone] Want Family/Rep/Phys Notified of Admit : No Emergency Contact #1 : Pelon William Emergency Contact #1 Emergency Contact #1 Relationship : spouse Emergency Contact #2 : na Emergency Contact #2 Phone Number : na Emergency Contact #2 Relationship : na Information Obtained From : Patient Primary Language : Turkish Communication Barrier : None Dry Man Needed : No Objects to Sharing Info w Family : No Clinical Trials Participant *Q : None CTP, None *Q : Yes MEREDITH FELIX RN - 12/06/2019 12:26 EDT Catalino Scale Catalino Sensory Perception : No impairment Catalino Moisture : Rarely moist [place] Activity : Walks frequently Catalino Mobility : Slightly limited Catalino Nutrition : Adequate Catalino Friction and Shear : No apparent problem Catalino Score : 21 MEREDITH FELIX RN - 12/06/2019 12:26 EDT Sleep Apnea Risk Assmt Hx of Obstructive Sleep Apnea Diagnosis : No Snore Loudly : Yes Tired, Fatigued, or Sleepy During Day : No Observed Stopping Breathing During Sleep : No Have/Are Being Treated for Hypertension : Yes BMI Greater Than 35 kg/m2 : Yes Age over 50 Years Old : Yes Neck Circumference Greater Than 40 cm : Yes Gender Male : No STOP-BANG Sleep Apnea Risk Level Score : 5 MEREDITH FELIX RN - 12/06/2019 12:26 EDT documented in this encounter Plan of Treatment Not on file documented as of this encounter Visit Diagnoses Not on filedocumented in this encounter
--- OUTSIDE RECORDS SUMMARY | 2024-12-17 09:02 | XMS_ITS | Encounter Summary ---
Author Organization [employer] ([place], [place], [place], [place]) Address [address] [place] [address] Care Team Providers Care Adjunct Instructor Chemistry Name Role Phone Unavailable Primary Care Provider Unavailabl e Encounter Details Date Type Department Care Team (Late st Contact Info) Description 12/07/2019 Transcribed Document [facility] [place] [facility] [place] [address] ProviderWanda MD [address] [place] [address] Social History Tobacco Use Types [...] Wanda ProviderMD - 12/07/2019 8:12 AM CDT [facility] Main OR IntraOp Summary Primary Physician: GIULIA NELSON DPM-SUR Finalized Date/Time: 12/08/19 09:34:55 Pt. Name: FELI WILLIAMO.B./Sex: 1955 Female Med Rec #: [id number] Physician: GIULIA NELSON DPM-SUR Financial #: [id number] Pt. Type: O Room/Bed: /1 Admit/Disch: 12/07/19 06:09:00 - 12/07/19 12:10:00 Institution: [facility] IntraOp Case Attendance Entry 1 Entry 2 Entry 3 Case Attendee GIULIA NELSON DPM-SUR COLLINS, DEBRA, NEEDLE LOOM SETTER Munoz, Michelle M, RN Role Performed Surgeon/Proceduralist, Scrub, First Meteorological Aide, First First Time In 12/07/19 07:40:00 12/07/19 07:40:00 12/07/19 07:40:00 Time Out 12/07/19 09:33:00 12/07/19 09:33:00 12/07/19 09:33:00 Procedure Achilles Tendon Achilles Tendon Achilles Tendon Repair(Right), Repair(Right), Repair(Right), Exostosis Excision Exostosis Excision Exostosis Excision Other Attendee Superficial Wound Closed By: Last Modified By: Michelle Munoz, Michelle Watters, Michelle Watters, DEVAN 12/07/19 09:33:22 12/07/19 09:33:22 12/07/19 09:33:22 Entry 4 Entry 5 Entry 6 Case Attendee JOEL SLOIS, DEVAN DELGADO, NEISHA SHELL SUZANNE K, MD-ANS WALL AND FLOOR TILER, EVENT OPERATIONS MANAGER Role Performed Meteorological Aide, Second Anesthesiologist EVENT OPERATIONS MANAGER/Nurse Poultry Farm Laborer Time In 12/07/19 07:40:00 12/07/19 07:40:00 12/07/19 07:40:00 Time Out 12/07/19 09:33:00 12/07/19 09:33:00 12/07/19 09:33:00 Procedure Achilles Tendon Achilles Tendon Achilles Tendon Repair(Right), Repair(Right), Repair(Right), Exostosis Excision Exostosis Excision Exostosis Excision Other Attendee Superficial Wound Closed By: Last Modified By: Michelle Munoz RN Hamilton, Gina M, RN Hamilton, Gina M, RN 12/07/19 09:33:22 12/07/19 09:33:22 12/07/19 09:33:22 Entry 7 Entry 8 Case Attendee OTHER, ATTENDEE OTHER, ATTENDEE #1 Role Performed [employer] [facility] Educator Time In 12/07/19 07:40:00 12/07/19 07:40:00 Time Out 12/07/19 09:33:00 12/07/19 09:33:00 Procedure Achilles Tendon Achilles Tendon Repair(Right), Repair(Right), Exostosis Excision Exostosis Excision Other Attendee DAX Galindo Superficial Wound Closed By: Last Modified By: Michelle Munoz, RN Michelle Munoz RN 12/07/19 09:33:22 12/07/19 08:18:47 [facility] IntraOp Case Attendance Audit 12/07/19 09:33:22 Anesthesiologist Physician: HAMILTGM Modifier: HAMILTGM 1 <+> Time Out 1 <*> Procedure Achilles Tendon Repair(Right), Exostosis Excision 2 <+> Time Out 2 <*> Procedure Achilles Tendon Repair(Right), Exostosis Excision 3 <+> Time Out 3 <*> Procedure Achilles Tendon Repair(Right), Exostosis Excision 4 <+> Time Out 4 <*> Procedure Achilles Tendon Repair(Right), Exostosis Excision 5 <+> Time Out 5 <*> Procedure Achilles Tendon Repair(Right), Exostosis Excision 6 <+> Time Out 6 <*> Procedure Achilles Tendon Repair(Right), Exostosis Excision 7 <+> Time Out 7 <*> Procedure Achilles Tendon Repair(Right), Exostosis Excision 8 <+> Time Out 8 <*> Procedure Achilles Tendon Repair(Right), Exostosis Excision 12/07/19 08:18:47 Anesthesiologist Physician: HAMILTGM Modifier: HAMILTGM 8 <+> Case Attendee 8 <*> Procedure Achilles Tendon Repair(Right), Exostosis Excision 8 <+> Other Attendee 12/07/19 08:08:27 Anesthesiologist Physician: HAMILTGM Modifier: HAMILTGM 8 <*> Procedure Achilles Tendon Repair(Right), Exostosis Excision 12/07/19 07:51:54 Anesthesiologist Physician: HAMILTGM Modifier: HAMILTGM 1 <*> Procedure Achilles Tendon Repair(Right), Exostosis Excision 2 <+> Time In 2 <*> Procedure Achilles Tendon Repair(Right), Exostosis Excision 3 <+> Time In 3 <*> Procedure Achilles Tendon Repair(Right), Exostosis Excision 4 <+> Time In 4 <*> Procedure Achilles Tendon Repair(Right), Exostosis Excision 5 <+> Time In 5 <*> Procedure Achilles Tendon Repair(Right), Exostosis Excision 6 <+> Time In 6 <*> Procedure Achilles Tendon Repair(Right), Exostosis Excision 7 <+> Time In 7 <*> Procedure Achilles Tendon Repair(Right), Exostosis Excision 8 <+> Time In 8 <*> Procedure Achilles Tendon Repair(Right), Exostosis Excision [facility] IntraOp Case Times Entry 1 Patient In Room Time 12/07/19 07:40:00 Out Room Time 12/07/19 09:33:00 Anesthesia Start Time 12/07/19 07:40:00 Stop Time 12/07/19 09:33:00 Surgery / Procedure Times Start Time 12/07/19 08:12:00 Stop Time 12/07/19 09:15:00 Last Modified By: Michelle Munoz RN 12/07/19 09:33:20 [facility] IntraOp Case Times Audit 12/07/19 09:33:20 Anesthesiologist Physician: HAMILTGM Modifier: HAMILTGM <+> 1 Out Room Time <+> 1 Stop Time <+> 1 Stop Time 12/07/19 08:12:52 Anesthesiologist Physician: HAMILTGM Modifier: HAMILTGM <+> 1 Start Time [facility] IntraOp Cautery Entry 1 ESU Identification Cautery Type Monopolar ESU ID Number [id number] ID Type Hospital Number Cautery Settings Cut Setting 30 Coag Setting 30 ESU Grounding Pad Ground Pad Type Adult Grounding Pad Site Posterior Grounding Pad Michelle Munoz RN Applied By Grounding Pad Site Warm, dry and intact Skin Condition Before Cautery Grounding Pad Site Unchanged Skin Condition After Cautery Last Modified By: Michelle Munoz RN 12/07/19 07:46:47 [facility] IntraOp Communication Entry 1 Entry 2 Communication To Family/Significant other Other Comment FAMILY CALLED BY PREOP REPORT NURSE PRIOR TO LEAVING FOR OR. Communication By Michelle Munoz RN COMPTON, TRACY, RN Date and Time 12/07/19 07:47:00 12/07/19 09:09:00 Last Modified By: Michelle Munoz RN Hamilton, Gina M, RN 12/07/19 07:47:13 12/07/19 09:09:39 [facility] IntraOp Communication Audit 12/07/19 09:09:39 Anesthesiologist Physician: HAMILTGM Modifier: HAMILTGM <+> 2 Communication By <+> 2 Date and Time <+> 2 Communication To <+> 2 Comment [facility] IntraOp Counts Verification Entry 1 Procedure Achilles Tendon Repair(Right), Exostosis Excision Count Info Count Type Sponge, Sharps, Miscellaneous Counts Verification Baseline/pre-procedure Sequence Count Results Not Applicable Counts Performed By Count Performed By NABEEL BARAKAT CST (Scrub) Count Performed By Michelle Munoz RN (RN) Last Modified By: Michelle Munoz RN 12/07/19 07:47:26 [facility] IntraOp Counts Final Entry 1 Entry 2 Procedure Achilles Tendon Achilles Tendon Repair(Right), Repair(Right), Exostosis Excision Exostosis Excision Final Count Info Count Type Sponge, Sharps, Sponge, Sharps Miscellaneous Counts Verification Skin Closure/end of Skin Closure/end of Sequence procedure procedure Count Results Correct, surgeon Correct, surgeon notified notified If Incorrect or Waived complete the Counts Action Taken form: If Intentional Retention, complete the Intential Retention form: Counts Performed By Count Performed By NABEEL BARAKAT CST COLLINS, DEBRA, CST (Scrub) Count Performed By JOEL SOLIS, JOEL ZAMAN RN (RN) Last Modified By: Michelle Munoz RN Hamilton, Gina M, RN 12/07/19 07:47:35 12/07/19 09:03:07 [facility] IntraOp Counts Final Audit 12/07/19 09:03:27 Anesthesiologist Physician: HAMILTGM Modifier: HAMILTGM 1 <*> Procedure Achilles Tendon Repair(Right), Exostosis Excision 1 <+> Count Performed By (Scrub) 1 <+> Count Performed By (RN) 12/07/19 09:03:07 Anesthesiologist Physician: HAMILTGM Modifier: HAMILTGM <+> 2 Procedure <+> 2 Count Type <+> 2 Count Results <+> 2 Count Performed By (Scrub) <+> 2 Count Performed By (RN) <+> 2 Counts Verification Sequence [facility] IntraOp Cultures and Spec Summary Entry 1 Cultrures and Specimens Specimen Ordered: Yes Test(s) Routine/Path-Lab Requested/Final Disposition Last Modified By: Michelle Munoz RN 12/07/19 08:26:54 General Comments: A. RETROCALCANEAL BURSA [facility] IntraOp Departure from OR Entry 1 Integumentary Assessment Transfer/Handoff Transfer to PACU Phase I Handoff Method Phone call Post-op Transport Stretcher/Gurney Via Patient Transport Michelle Munoz RN, Accompanied by EVANGELINA DRIVER APRN, CRNA Last Modified By: Michelle Munoz RN 12/07/19 07:48:00 [facility] IntraOp Dressing and Packing Entry 1 Type Dressing Location OPSITE Wound Dressing Item 4x4's, Kerlix/Devin, Minesh Supplemental Splint Applications Applied By GIULIA NELSON DPM-SUR Last Modified By: Michelle Munoz RN 12/07/19 09:09:13 [facility] IntraOp Fire Risk Assessment Entry 1 Fire Info Surgical Site or 0- No Incision Above the Xyphoid Open O2 Source 0- No (Mask or Cannula) Available Ignition 1- Yes (ESU, Laser, Light Source) Fire Risk 1 Assessment Score Fire Score Fire Risk Yes Assessment Complete Fire Risk Michelle Munoz RN Assessment Verified By Fire Risk 12/07/19 07:48:00 Assessment Verified Date/Time Fire Risk Standard Fire Yes Safety Precautions Followed Last Modified By: Michelle Munoz RN 12/07/19 07:48:21 [facility] IntraOp General Case Area Field Worker 1 Case Information OR OR [facility] Case Level 1 Room Verified Yes Wound Class I - Clean Specialty SN Podiatry Anesthesia Type General ASA Class 3 Diagnosis Preop Diagnosis RIGHT FOOT PAIN Postop Same As Preop No Postop Diagnosis SEE DOCTOR'S POST OP NOTES Last Modified By: Michelle Munoz RN 12/07/19 07:49:02 [facility] IntraOp Implant Log Entry 1 Entry 2 Type Implant (Synthetic) Tissue Implant (Biologic) Implant Log Implant Type Other Tissue Implant Type Implant IMP SYS ARCH SPDBRG W IMP STRAVIX [id number] Identification [id number] Description Implant Quantity 1 1 Implant Site OPSITE OPSITE Implant Identification Model Number Implant [id number] Identification Serial Number Implant [id number] Identification Lot Number Implant [employer] Identification Church Worker Name: Implant [id number] Identification Catalog Number Implant Size Implant Has an Yes Yes Expiration Date Implant Expiration 05/04/21 03/28/21 Date Wasted Radioactive Material Time Implanted Tissue Implant Continue for Tissue Implant Documentation Tissue Identification Number Graft Prep Per Yes Church Worker Instructions: Tissue Preparation Method: Reconstitution Solution: Reconstitution Solution Lot Number Reconstitution Solution Expiration Date: Thawing Solution Thawing Solution Lot Number Thawing Solution Expiration Date Preparation Materials, Other Preparation Materials, Other Lot Number Preparation Materials, Other Expiration Date Tissue NABEEL BARAKAT CST Prepared/Processed By Church Worker Yes Paperwork Completed Implant Type Comment Last Modified By: Michelle Munoz RN Hamilton, Gina M, RN 12/07/19 09:02:46 12/07/19 09:02:47 [facility] IntraOp Implant Log Audit 12/07/19 09:02:47 Anesthesiologist Physician: THU Modifier: THU <+> 1 Implant Expiration Date <+> 1 Implant Identification Catalog Number <+> 1 Implant Has an Expiration Date <+> 2 Implant Identification Description <+> 2 Implant Identification Serial Number <+> 2 Implant Identification Lot Number <+> 2 Implant Identification Church Worker Name: <+> 2 Implant Expiration Date <+> 2 Implant Site <+> 2 Implant Quantity <+> 2 Implant Identification Catalog Number <+> 2 Graft Prep Per Church Worker Instructions: <+> 2 Tissue Prepared/Processed By <+> 2 Church Worker Paperwork Completed <+> 2 Implant Has an Expiration Date <+> 2 Type [facility] IntraOp Intraoperative Assessment Entry 1 Handoff Method Online nursing summary Valid History / Yes Physical in Chart Preoperative Yes Checklist Reviewed/Evaluated Allergies Reviewed Yes Patient is Latex No Sensitive Isolation Not applicable Precautions Noted Level of WDL Consciousness (WDL = Alert, Oriented to Person, Place, and Time) Skin Assessment Yes Verified Present Upon IVs Arrival to OR Last Modified By: Michelle Munoz RN 12/07/19 07:49:18 [facility] IntraOp Intraoperative Equipment Entry 1 Type Equipment Equipment Equipment Jax Suction System Setting HIGH Intraop Monitoring Electrocardiogram Three lead placement (ECG) Electrode Placement Blood Pressure Non-Invasive BP Device Source Blood Pressure Arm, right lower Location Pulse Oximeter Hand, left Probe Site Antiembolic Devices Scopes Photo/Video Documentation Photo No Video No Last Modified By: Michelle Munoz RN 12/07/19 07:49:48 [facility] IntraOp Medication Admin Entry 1 Medication/Irrigant SALINE NORMAL-[id number] Route of IRRIGATION Administration Dose Administered By GIULIA NELSON DPM-CAROLYNN Procedure Irrigation Last Modified By: Michelle Munoz RN 12/07/19 07:50:05 [facility] IntraOp Patient Positioning Entry 1 Procedure Achilles Tendon Repair(Right), Exostosis Excision Body Position Prone Left Arm Position Secured on padded arm board Right Arm Position Secured on padded arm board Left Leg Position Uncrossed, parallel Right Leg Position Held on field Feet Uncrossed Yes Pressure Points Yes Checked Positioning Devices Arm Board, Head Rest, Pad, Arm, Pillows, Safety Strap, Arm(s), Safety Strap, Thighs, Roll(s), Chest Positioned By GIULIA NELSON DPM-SUR, Michelle Munoz, RN, JOEL SOLIS, DEVAN, EVANGELINA DRIVER APRN, EVENT OPERATIONS MANAGER Position Verified Positioning Yes Verified by Anesthesia Positioning Yes Verified by Surgeon Last Modified By: Michelle Munoz RN 12/07/19 07:51:40 [facility] IntraOp Sign In Entry 1 Patient, Site, Yes Procedure Identified Surgical Consent Yes Confirmed Relevant Surgical Yes Documents Available Surgical Site Yes Marked by person performing procedure Anesthesia Machine Yes Check Completed Medication Checks Yes Completed Allergies Yes Airway Difficult Yes Airway/Aspiration Risk Difficult Yes Airway/Aspiration Intervention Equipment Available Blood Loss Risk Yes Blood Loss Yes Intervention Equipment Prepared and Ready Blood Identifiers Not applicable Verified Per Policy Hypothermia Risk Yes Warming Measures Yes Taken Last Modified By: Michelle Munoz RN 12/07/19 07:51:52 [facility] IntraOp Sign Out Entry 1 RN Confirmation Surgical Yes Procedure(s) Identified Instrument, Sponge Yes and Sharps Counts Correct/Documented Equipment Problems Yes Documented Specimen Labeled Yes Correctly Urinary Catheter N/A Documented in IView Foster Patient Yes Recovery Concerns Reviewed with Anesthesia Provider, Surgeon and RN Foster Patient Yes Management Concerns Reviewed with Anesthesia Provider, Surgeon and RN Safety Checklist Yes Elements Complete? RN Sign Out Michelle Munoz RN Signature RN Sign Out 12/07/19 09:33:00 Signature Date/Time Plan of Care Outcome - Fire Risk OUTCOME STATEMENT: Goal met Patient is free from injury related to surgical fire Plan of Care Outcome - Pt Positioning OUTCOME STATEMENT: Goal met Absence of signs and symptoms of positioning injury. Plan of Care Outcome - Skin Prep OUTCOME STATEMENT: Goal met Intraoperative care is consistent with measures to prevent infection Plan of Care Outcome - Xray/Images OUTCOME STATEMENT: Goal met Absence of observable signs or symptoms of radiation injury Plan of Care Outcome - Counts OUTCOME STATEMENT: Goal met Absence of signs and symptoms of injury related to extraneous objects Last Modified By: Michelle Munoz RN 12/07/19 07:52:05 [facility] IntraOp Sign Out Audit 12/07/19 09:34:01 Anesthesiologist Physician: HAMILTGM Modifier: HAMILTGM <+> 1 RN Sign Out Signature <+> 1 RN Sign Out Signature Date/Time [facility] IntraOp Skin Prep Entry 1 Procedure Achilles Tendon Repair(Right), Exostosis Excision Prescribed N/A Pre-Surgical Prep Completed Prep Area RIGHT THIGH TO TOES CIRCUMFERENTIALLY Intraop Prep Prep Agents Chloraprep Prep by Michelle Munoz RN Hair Removal Methods No hair removal performed Last Modified By: Michelle Munoz RN 12/07/19 07:53:02 [facility] IntraOp Surgical Procedures Entry 1 Entry 2 Procedure Achilles Tendon Repair Exostosis Excision Modifiers Right Additional RT FOOT ACHILLES Procedure DETACHMENT AND Description REATTACH, WITH EXCISION OF RETROCALCANEAL EXOSTOSIS Primary Procedure Yes No Primary Surgeon GIULIA NELSON DPM-SUR KIDON, ALAN, DPM-SUR Start 12/07/19 08:12:00 12/07/19 08:12:00 Stop 12/07/19 09:15:00 12/07/19 09:15:00 Physician States Cecum Reached Anesthesia Type General General Specialty SN Podiatry SN Podiatry Wound Class I - Clean I - Clean Last Modified By: Michelle Munoz RN Hamilton, Gina M, RN 12/07/19 07:53:34 12/07/19 07:53:34 General Comments: 2 GRAMS OF ANCEF INFUSED BY ANESTHESIA PRIOR TO START OF PROCEDURE. [facility] IntraOp Surgical Procedures Audit 12/07/19 09:33:44 Anesthesiologist Physician: HAMILTGM Modifier: HAMILTGM 1 <*> Procedure Achilles Tendon Repair 1 <*> Procedure Achilles Tendon Repair 1 <*> Specialty 2 <*> Procedure Exostosis Excision 2 <*> Procedure Exostosis Excision 2 <*> Specialty 12/07/19 09:33:23 Anesthesiologist Physician: HAMILTGM Modifier: HAMILTGM 1 <*> Stop 2 <*> Stop 12/07/19 08:13:26 Anesthesiologist Physician: HAMILTGM Modifier: HAMILTGM 1 <*> Start 1 <*> Start 1 <*> Start 2 <*> Start 2 <*> Start 2 <*> Start [facility] IntraOp Temp Regulation Devices Entry 1 Temp Regulation Temperature Warm blankets, Forced Regulation Device Air Warming device Temperature Upper body Regulation Site Temperature EVANGELINA DRIVER, Regulation Device WALL AND FLOOR TILER, EVENT OPERATIONS MANAGER Applied by Last Modified By: Michelle Munoz RN 12/07/19 07:54:01 [facility] IntraOP Time Out Entry 1 Procedure to be Achilles Tendon Performed Repair(Right), Exostosis Excision Time Out Time Out Pause Time 12/07/19 08:10:00 All activity Yes suspended (unless life threatening emergency) Team Verbally Correct patient Confirms Information identity, Correct side and site are marked, Consent form is present and accurate, Agreement on the procedure to be done, Correct patient position, Relevant images/results properly labeled/appropriately displayed, Confirm antibiotics have been administered, Confirm the skin prep has dried, Confirm prosthesis/implant/devic e is present, Performed in location of procedure after prepped/draped Antibiotic Yes Prophylaxis Administered Or In Progress Within the Last 60 Minutes Beta Massimo N/A Administered Venous N/A Thromboembolism Prophylaxis Required Anticipated Critical Events Surgeon None expected Anesthesia Provider None expected Nursing Assures Sterility of instruments, Implant Availability Essential Imaging Yes Labeled and Displayed Last Modified By: Michelle Munoz RN 12/07/19 08:10:48 [facility] IntraOP Time Out Audit 12/07/19 08:10:48 Anesthesiologist Physician: CHENCHOILTGM Modifier: HAMILTGM 1 <+> Time Out Pause Time 1 <*> Procedure to be Performed Achilles Tendon Repair(Right), Exostosis Excision [facility] IntraOp Tourniquet Entry 1 Type Pneumatic Serial/Unit Number [id number] Setting 300 mmHg Pheumatic Yes Tourniquet Checked Per Protocol Size 34 inches Skin Protection - Yes Padded Under Cuff Applied By GIULIA NELSON DPM-CAROLYNN Removed By GIULIA NELSON DPM-SUR Times Start Time 12/07/19 08:12:00 Stop Time 12/07/19 09:14:00 Total Time 62 calculated manually (Mins) Last Modified By: Michelle Munoz RN 12/07/19 09:15:09 [facility] IntraOp Tourniquet Audit 12/07/19 09:15:09 Anesthesiologist Physician: CHENCHOILTGM Modifier: HAMILTGM <+> 1 Total Time calculated manually (Mins) <+> 1 Stop Time 12/07/19 08:12:49 Anesthesiologist Physician: HAMILTGM Modifier: HAMILTGM <+> 1 Start Time 12/07/19 08:10:29 Anesthesiologist Physician: HAMILTGM Modifier: HAMILTGM <+> 1 Setting <+> 1 Size [facility] IntraOp X-Ray and Images Entry 1 X-Ray/Imaging Type Fluoroscopy Fluoroscopy Type C-Arm Site OPSITE Last Modified By: Michelle Munoz RN 12/07/19 07:55:04 Case Comments <None> Finalized By: DON LYONS Document Signatures Signed By: Michelle Munoz RN 12/07/19 09:34 DON LYONS 12/08/19 09:34 Unfinalized History Date/Time Username Reason for Unfinalizing Freetext Reason for Unfinalizing 12/08/19 09:31 [id number] Correct Billing Electronically signed by Srikanth [facility] Conversion Biology Specialist Cerner at 08/21/2022 12:13 PM CDT documented in this encounter Plan of Treatment Not on file documented as of this encounter Visit Diagnoses Not on filedocumented in this encounter
--- OUTSIDE RECORDS SUMMARY | 2024-12-17 09:02 | XMS_ITS | Encounter Summary ---
Author Organization [employer] ([place], [place], [place], [place]) Address [address] [place] [address] Care Team Providers Care Sole Tacker Name Role Phone Unavailable Primary Care Provider Unavailabl e Encounter Details Date Type Department Care Team (Late st Contact Info) Description 12/07/2019 Transcribed Document [facility] Family Medicine Counts include 234 beds at the [facility] [place] [address] ProviderWanda MD [address] [place] [address] Social History Tobacco Use Types [...] Conversion Note - Wanda ProviderMD - 12/07/2019 11:57 AM CDT [facility] [place] [address] FELI WILLIAM :1955 Visit Time:12/07/2019 What to do next Your Diagnosis Achilles tendinitis, right leg, Achilles tendinitis, right leg Other specified disorders of bone, ankle and foot Pain in right foot Instructions From Your Care Team Diet after Discharge: Resume usual diet as tolerated, _, _ Activity after Discharge: _, , No strenuous activity Weight Bearing: _NON WEIGHT BEARING RIGHT FOOT Driving after Discharge: Do not drive until 24 hours after no longer taking pain medications Showering/Bathing: No showering, No tub bathing, soaking or swimming Notify Provider of: FEVER, CHILLS, SWELLING , INCREASED PAIN NOT RELIEVED BY PAIN MEDICINE. Wound/Incision Care after Discharge: Keep operative site/wound site clean and dry, _ Medical Equipment for Home Use: USE KNEE SCOOTER Medications What How Much When Instructions Next Dose metoprolol (Metoprolol Succinate ER) 50 Milligram(s) Oral At Bedtime buPROPion (buPROPion 150 mg/ 12 hours (SR) oral tablet, extended release) 1 Tablet(s) Oral Every Day esomeprazole (esomeprazole 49.3 mg oral delayed release capsule) 1 Capsule(s) Oral Every Day as needed for indigest ibuprofen 800 Milligram(s) Oral Every 8 Hours as needed for as needed for arthritis mirabegron (Myrbetriq) 25 Milligram(s) Oral Every Day zolpidem 10 Milligram(s) Oral At Bedtime as needed for as needed for insomnia Take your medications faithfully. Do NOT skip medication. Do NOT stop taking medications without the direction of a physician. Carry a list of your medications with you at all times, and take this medication list with you to your first follow up visit. Report any side effects. Avoid herbal remedies unless discussed with your physician. As part of your treatment plan, your physician may have prescribed a limited course of a controlled substance. This medication may be given to help people with moderate or severe pain or for other medical conditions, but there are risks involved with treatment. Common side effects may include nausea, constipation, drowsiness, sweating, itching, dry mouth, and rash. More serious side effects may include cognitive and motor impairment, like problems with thinking, concentrating, alertness, and movement (e.g. slowed reflexes), and driving and operating heavy machinery can be dangerous. It is important for you to talk to your physician if you have these side effects or questions. These controlled substances can produce physical dependence and be habit-forming if taken for an extended period of time, which means that the body has gotten used to them and may experience withdrawal symptoms if they are abruptly stopped. Withdrawal symptoms can include runny nose, sweating, goose bumps, diarrhea, abdominal cramping, rapid heartbeat, difficulty sleeping, and nervousness. Please dispose of unused and medications per pharmacy guidance. Education Materials General Anesthesia, Adult, Care After This sheet [...] activities are safe for you. ??? Take hlxx-unf-rnudsab and prescription medicines only as told by [...] 07/28/2001 Document Revised: 04/24/2018 Document Reviewed: 12/05/2017 [employer] Patient Education ?? 2020 [employer] Achilles Tendon Tear Repair, Care After [...] and water are not available, use hand snuff maker. ? Change your dressing as told by [...] health care provider. ??? Do not take cqpg-ejl-edoibxd medicines unless your health care provider says it is okay. ??? To prevent or treat constipation while you are taking prescription pain medicine, your health care provider may recommend that you: ? Drink enough fluid to keep your urine clear or pale yellow. ? Take hrzh-eqk-kzyjgti or prescription medicines. ? Eat foods that [...] health care provider or physical therapist. Between 2???6 weeks after surgery, your surgeon may recommend: [...] Leave the ice on for 20 minutes, 2???3 times a day. ??? See a physical [...] 12/25/2004 Document Revised: 02/18/2019 Document Reviewed: 04/04/2017 [employer] Patient Education ?? 2020 [employer] acetaminophen and oxycodone (a SEET a MIN oh fen and OX i KOE done) Endocet 10/325, Endocet 2.5/325, Endocet 5/325, Endocet 7.5/325, Nalocet, Percocet, Primlev What is the most important information I should know about acetaminophen and oxycodone? MISUSE OF OPIOID MEDICINE CAN CAUSE ADDICTION, OVERDOSE, OR . Keep the medication in a place where others cannot get to it. An overdose of acetaminophen can damage your liver or cause . Call your doctor at once if you have pain in your upper stomach, loss of appetite, dark urine, or jaundice (yellowing of your skin or eyes). Taking opioid medicine during may cause life-threatening withdrawal symptoms in the . Fatal side effects can occur if you use opioid medicine with alcohol, or with other drugs that cause drowsiness or slow your breathing. Stop taking this medicine and call your doctor right away if you have skin redness or a rash that spreads and causes blistering and peeling. What is acetaminophen and oxycodone? Acetaminophen and oxycodone is a combination medicine used to relieve moderate to severe pain. Acetaminophen and oxycodone may also be used for purposes not listed in this medication guide. What should I discuss with my healthcare provider before taking acetaminophen and oxycodone? You should not use this medicine if you are allergic to acetaminophen or oxycodone, or if you have: ?? severe asthma or breathing problems; or ?? a blockage in your stomach or intestines. Tell your doctor if you have ever had: ?? breathing problems, sleep apnea; ?? liver disease; ?? a drug or alcohol addiction; ?? kidney disease; ?? a head injury or seizures; ?? urination problems; or ?? problems with your thyroid, pancreas, or gallbladder. If you use opioid medicine while you are , your baby could become dependent on the drug. This can cause life-threatening withdrawal symptoms in the baby after it is born. Babies born dependent on opioids may need medical treatment for several weeks. Do not breastfeed. This medicine can pass into breast milk and cause drowsiness, breathing problems, or in a nursing baby. How should I take acetaminophen and oxycodone? Follow all directions on your prescription label. Never take this medicine in larger amounts, or for longer than prescribed. An overdose can damage your liver or cause . Tell your doctor if you feel an increased urge to use more of this medicine. Never share this medicine with another person, especially someone with a history of drug abuse or addiction. MISUSE CAN CAUSE ADDICTION, OVERDOSE, OR . Keep the medicine in a place where others cannot get to it. Selling or giving away acetaminophen and oxycodone is against the law. Measure liquid medicine carefully. Use the dosing syringe provided, or use a medicine dose-measuring device (not a kitchen spoon). If you need surgery or medical tests, tell the doctor ahead of time that you are using this medicine. You should not stop using this medicine suddenly. Follow your doctor's instructions about tapering your dose. Store at room temperature away from moisture and heat. Keep track of your medicine. You should be aware if anyone is using it improperly or without a prescription. Do not keep leftover opioid medication. Just one dose can cause in someone using this medicine accidentally or improperly. Ask your pharmacist where to locate a drug take-back disposal program. If there is no take-back program, flush the unused medicine down the toilet. What happens if I miss a dose? Since this medicine is used for pain, you are not likely to miss a dose. Skip any missed dose if it is almost time for your next dose. Do not use two doses at one time. What happens if I overdose? Seek emergency medical attention or call the Poison Help line at . An overdose of acetaminophen and oxycodone can be fatal. The first signs of an acetaminophen overdose include loss of appetite, nausea, vomiting, stomach pain, sweating, and confusion or weakness. Later symptoms may include pain in your upper stomach, dark urine, and yellowing of your skin or the whites of your eyes. Overdose can also cause severe muscle weakness, pinpoint pupils, very slow breathing, extreme drowsiness, or coma. What should I avoid while taking acetaminophen and oxycodone? Avoid driving or operating machinery until you know how this medicine will affect you. Dizziness or drowsiness can cause falls, accidents, or severe injuries. Do not drink alcohol. Dangerous side effects or could occur. Ask a doctor or pharmacist before using any other medicine that may contain acetaminophen (sometimes abbreviated as APAP). Taking certain medications together can lead to a fatal overdose. What are the possible side effects of acetaminophen and oxycodone? Get emergency medical help if you have signs of an allergic reaction: hives; difficulty breathing; swelling of your face, lips, tongue, or throat. Opioid medicine can slow or stop your breathing, and may occur. A person caring for you should seek emergency medical attention if you have slow breathing with long pauses, blue colored lips, or if you are hard to wake up. In rare cases, acetaminophen may cause a severe skin reaction that can be fatal. This could occur even if you have taken acetaminophen in the past and had no reaction. Stop taking this medicine and call your doctor right away if you have skin redness or a rash that spreads and causes blistering and peeling. Call your doctor at once if you have: ?? noisy breathing, sighing, shallow breathing, breathing that stops during sleep; ?? a light-headed feeling, like you might pass out; ?? weakness, tiredness, fever, unusual bruising or bleeding; ?? confusion, unusual thoughts or behavior; ?? problems with urination; ?? liver problems--nausea, upper stomach pain, tiredness, loss of appetite, dark urine, meeta-colored stools, jaundice (yellowing of the skin or eyes); or ?? low cortisol levels-- nausea, vomiting, loss of appetite, dizziness, worsening tiredness or weakness. Seek medical attention right away if you have symptoms of serotonin syndrome, such as: agitation, hallucinations, fever, sweating, shivering, fast heart rate, muscle stiffness, twitching, loss of coordination, nausea, vomiting, or diarrhea. Serious side effects may be more likely in older adults and those who are overweight, malnourished, or debilitated. Long-term use of opioid medication may affect fertility (ability to have children) in men or women. It is not known whether opioid effects on fertility are permanent. Common side effects include: ?? dizziness, drowsiness, feeling tired; ?? feelings of extreme happiness or sadness; ?? nausea, vomiting, stomach pain; ?? constipation; or ?? headache. This is not a complete list of side effects and others may occur. Call your doctor for medical advice about side effects. You may report side effects to FDA at 7-283-UPC-9048. What other drugs will affect acetaminophen and oxycodone? You may have breathing problems or withdrawal symptoms if you start or stop taking certain other medicines. Tell your doctor if you also use an antibiotic, antifungal medication, heart or blood pressure medication, seizure medication, or medicine to treat HIV or hepatitis C. Opioid medication can interact with many other drugs and cause dangerous side effects or . Be sure your doctor knows if you also use: ?? cold or allergy medicines, bronchodilator asthma/COPD medication, or a diuretic ('water pill'); ?? medicines for motion sickness, irritable bowel syndrome, or overactive bladder; ?? other narcotic medications--opioid pain medicine or prescription cough medicine; ?? a sedative like Valium--diazepam, alprazolam, lorazepam, Xanax, Klonopin, Versed, and others; ?? drugs that make you sleepy or slow your breathing--a sleeping pill, muscle relaxer, medicine to treat mood disorders or mental illness; ?? drugs that affect serotonin levels in your body--a stimulant, or medicine for depression, Parkinson's disease, migraine headaches, serious infections, or nausea and vomiting. This list is not complete. Other drugs may affect acetaminophen and oxycodone, including prescription and btpo-ucw-ycsiosk medicines, vitamins, and herbal products. Not all possible interactions are listed here. Where can I get more information? Your doctor or pharmacist can provide more information about acetaminophen and oxycodone. Remember, keep this and all other medicines out of the reach of children, never share your medicines with others, and use this medication only for the indication prescribed. Every effort has been made to ensure that the information provided by [employer] is accurate, up-to-date, and complete, but no guarantee is made to that effect. Drug information contained herein may be time sensitive. [employer] information has been compiled for use by healthcare practitioners and consumers in the [place] and therefore [employer] does not warrant that uses outside of the [place] are appropriate, unless specifically indicated otherwise. [employer]'s drug information does not endorse drugs, diagnose patients or recommend therapy. [employer] drug information is an informational resource designed to assist licensed healthcare practitioners in caring for their patients and/or to serve consumers viewing this service as a supplement to, and not a substitute for, the expertise, skill, knowledge and judgment of healthcare practitioners. The absence of a warning for a given drug or drug combination in no way should be construed to indicate that the drug or drug combination is safe, effective or appropriate for any given patient. [employer] does not assume any responsibility for any aspect of healthcare administered with the aid of information [employer] provides. The information contained herein is not intended to cover all possible uses, directions, precautions, warnings, drug interactions, allergic reactions, or adverse effects. If you have questions about the drugs you are taking, check with your doctor, nurse or pharmacist. Copyright 0669-2968 [facility]. Version: . Revision Date: 05/26/2019. cephalexin (sef a SUE in) Keflex What is the most important information I should know about cephalexin? You should not use this medicine if you are allergic to cephalexin or to similar antibiotics, such as Ceftin, Cefzil, Omnicef, and others. Tell your doctor if you are allergic to any drugs, especially penicillins or other antibiotics. What is cephalexin? Cephalexin is a cephalosporin (SEF a low spor in) antibiotic that is used to treat bacterial infections of the lungs, ear, skin, bones, bladder, and kidneys. Cephalexin is used to treat infections in adults and children who are at least 1 year old. Cephalexin may also be used for purposes not listed in this medication guide. What should I discuss with my healthcare provider before taking cephalexin? You should not use this medicine if you are allergic to cephalexin or to other cephalosporin antibiotics, such as: ?? cefaclor (Ceclor), cefadroxil (Duricef), cefazolin (Ancef, Kefzol); ?? cefdinir (Omnicef), cefditoren (Spectracef); ?? cefixime (Suprax); ?? cefotaxime (Claforan), cefotetan (Cefotan); ?? cefpodoxime (Vantin), cefprozil (Cefzil); ?? ceftaroline (Teflaro), ceftazidime (Ceptaz, Fortaz), ceftriaxone (Rocephin); ?? cefuroxime (Ceftin), and others. Tell your doctor if you have ever had: ?? an allergy to any drug (especially penicillin); ?? liver or kidney disease; or ?? intestinal problems, such as colitis. The liquid form of cephalexin may contain sugar. This may affect you if you have diabetes. Tell your doctor if you are or breast-feeding. How should I take cephalexin? Follow all directions on your prescription label and read all medication guides or instruction sheets. Use the medicine exactly as directed. Do not use cephalexin to treat any condition that has not been checked by your doctor. Measure liquid medicine carefully. Use the dosing syringe provided, or use a medicine dose-measuring device (not a kitchen spoon). Use this medicine for the full prescribed length of time, even if your symptoms quickly improve. Skipping doses can increase your risk of infection that is resistant to medication. Cephalexin will not treat a viral infection such as the flu or a common cold. Do not share cephalexin with another person, even if they have the same symptoms you have. This medicine can affect the results of certain medical tests. Tell any doctor who treats you that you are using cephalexin. Store the tablets and capsules at room temperature away from moisture, heat, and light. Store the liquid medicine in the refrigerator. Throw away any unused liquid after 14 days. What happens if I miss a dose? Take the medicine as soon as you can, but skip the missed dose if it is almost time for your next dose. Do not take two doses at one time. What happens if I overdose? Seek emergency medical attention or call the Poison Help line at . Overdose symptoms may include nausea, vomiting, stomach pain, diarrhea, and blood in your urine. What should I avoid while taking cephalexin? Antibiotic medicines can cause diarrhea, which may be a sign of a new infection. If you have diarrhea that is watery or bloody, call your doctor before using anti-diarrhea medicine. What are the possible side effects of cephalexin? Get emergency medical help if you have signs of an allergic reaction (hives, difficult breathing, swelling in your face or throat) or a severe skin reaction (fever, sore throat, burning eyes, skin pain, red or purple skin rash with blistering and peeling). Call your doctor at once if you have: ?? severe stomach pain, diarrhea that is watery or bloody (even if it occurs months after your last dose); ?? unusual tiredness, feeling light-headed or short of breath; ?? easy bruising, unusual bleeding, purple or red spots under your skin; ?? a seizure; ?? pale skin, cold hands and feet; ?? yellowed skin, dark colored urine; ?? fever, weakness; or ?? pain in your side or lower back, painful urination. Common side effects may include: ?? diarrhea; ?? nausea, vomiting; ?? indigestion, stomach pain; or ?? vaginal itching or discharge. This is not a complete list of side effects and others may occur. Call your doctor for medical advice about side effects. You may report side effects to FDA at 7-869-UUS-7931. What other drugs will affect cephalexin? Tell your doctor about all your other medicines, especially: ?? metformin; or ?? probenecid. This list is not complete. Other drugs may affect cephalexin, including prescription and eofq-ozh-rnjxnwx medicines, vitamins, and herbal products. Not all possible drug interactions are listed here. Where can I get more information? Your pharmacist can provide more information about cephalexin. Remember, keep this and all other medicines out of the reach of children, never share your medicines with others, and use this medication only for the indication prescribed. Every effort has been made to ensure that the information provided by [employer] is accurate, up-to-date, and complete, but no guarantee is made to that effect. Drug information contained herein may be time sensitive. [employer] information has been compiled for use by healthcare practitioners and consumers in the [place] and therefore [employer] does not warrant that uses outside of the [place] are appropriate, unless specifically indicated otherwise. [employer] drug information does not endorse drugs, diagnose patients or recommend therapy. [employer] drug information is an informational resource designed to assist licensed healthcare practitioners in caring for their patients and/or to serve consumers viewing this service as a supplement to, and not a substitute for, the expertise, skill, knowledge and judgment of healthcare practitioners. The absence of a warning for a given drug or drug combination in no way should be construed to indicate that the drug or drug combination is safe, effective or appropriate for any given patient. [employer] does not assume any responsibility for any aspect of healthcare administered with the aid of information [employer] provides. The information contained herein is not intended to cover all possible uses, directions, precautions, warnings, drug interactions, allergic reactions, or adverse effects. If you have questions about the drugs you are taking, check with your doctor, nurse or pharmacist. Copyright 3027-1987 [employer] Version: 10.02. Revision Date: 06/28/2019. Emergency Awareness and Preventative Care STROKE is an EMERGENCY Every Minute Counts Act FAST and Check for these signs: FACE Does the face look uneven? ARM Does one arm drift down? SPEECH Does their speech sound strange? TIME Call at any sign of stroke Stroke Risk Factors Atrial Fibrillation (irregular heartbeat) Diabetes Family history of stroke Heart Disease Heavy alcohol use High Blood Pressure High Cholesterol Physical inactivity and obesity Smoking Cigarette Smoking The facts are clear, cigarette smoking will shorten your life. Smoking can cause many illnesses along the way. As a healthcare provider, we recommend that you stop smoking. Assistance with quitting is available by contacting 3-147-HWMFNOW. This is a free resource providing counseling, support, and referral. Or you may contact your personal physician. [employer] Suicide Prevention Lifeline: The National Suicide Prevention Lifeline is a national network of local crisis centers that provides free and confidential emotional support to people in suicidal crisis or emotional distress 24 hours a day, 7 days a week. Don't Wait! Stop a Heart Attack Before it Starts What is a heart attack? A heart attack is damage or to a part of the heart from severely decreased or lack of blood flow to the heart. Over time, arteries can become narrow from the buildup of fat and cholesterol, which is called plaque. The plaque can rupture causing a blood clot to form. When the blood clot forms, the artery can become severely narrowed or completely blocked, causing a heart attack. Heart attack is the leading cause of in the [place]. 85% of muscle damage occurs within the first 2 hours. Delay in the recognition of heart attack symptoms increases the chances of . Know the early symptoms of a heart attack: Nausea Feeling of fullness in chest Jaw Pain Pain that travels down one or both arms Fatigue/being tired Anxiety Back Pain Chest pressure, squeezing, or discomfort Shortness of breath Sweating, or a cold sweat Feeling of impending doom There are unusual signs of a heart attack, too! Women, the elderly, and diabetics may present with atypical symptoms: Fainting/dizziness Weakness Confusion Risk Factors for a Heart Attack Some heart disease risk factors, such as age and family history, cannot be changed. Others, like smoking and lack of exercise, can be changed. Smoking High Cholesterol High Blood Pressure Family History Obesity Age Gender (Males are at higher risk) Lack of Exercise Diabetes Diet Stress Excessive Alcohol Intake If you or someone you know is experiencing the signs and symptoms of a heart attack, DON???T DELAY. Call immediately and seek help. If someone collapses, perform CPR! Do not attempt to drive if you are having symptoms of heart attack. Hands-Only CPR Why Hands-Only CPR? Hands-Only CPR has been shown to be as effective as conventional CPR for cardiac arrests that occur outside of a hospital. Survival depends on immediately receiving CPR from someone nearby. How do you perform Hands-Only CPR? There are two easy steps: Call if you see a teen or adult collapse Push hard and fast in the center of the chest at a beat of 100 beats per minute. Save a life! 4 WAYS TO GET AHEAD OF SEPSIS SEPSIS is a MEDICAL EMERGENCY. Time matters! Infections put you and your family at risk for a life-threatening condition called sepsis. Sepsis is the body's extreme response to an infection. It is life-threatening, and without timely treatment, sepsis can rapidly lead to tissue damage, organ failure, and . Sepsis happens when an infection you already have-in your skin, lungs, urinary tract or somewhere else-triggers a chain reaction throughout your body. 1 PREVENT INFECTIONS Take good care of chronic conditions. Talk to your doctor about getting the recommended vaccines. 2 PRACTICE GOOD HYGIENE Wash your hands frequently. Keep cuts or open sores clean and covered until they are healed. 3 KNOW THE SYMPTOMS Confusion or disorientation Shortness of breath High heart rate Fever, shivering, or feeling very cold Extreme pain or discomfort Clammy or sweaty skin 4 ACT FAST Get medical care IMMEDIATELY if you suspect sepsis or if you have an infection that is not getting better or is getting worse. To learn more about sepsis and how to prevent infections, visit www.cdc.gov/sepsis. Test Results Laboratory or Other Results This Visit (last charted value for your 12/07/2019 visit) Hematology 12/06/2019 12:49 PM WBC: 6.5 K/uL -- Normal range between ( 4.5 and 10.5 ) RBC: 4.56 Million/uL -- Normal range between ( 3.93 and 5.22 ) Hct: 41.9 % -- Normal range between ( 34.1 and 44.9 ) Hgb: 13.8 g/dL -- Normal range between ( 11.2 and 15.7 ) Platelet Count: 236 K/uL -- Normal range between ( 163 and 369 ) MCH: 30.3 pg -- Normal range between ( 25.6 and 32.2 ) MCHC: 32.9 Gram/dL -- Normal range between ( 32.2 and 36.5 ) MCV: 91.9 fL -- Normal range between ( 79.0 and 94.8 ) Slide Review: No Eos %: 2.9 % -- Normal range between ( 0.0 and 7.0 ) [place] #: 0.64 K/uL -- Normal range between ( 0.16 and 1.00 ) Eos #: 0.19 x10(3)/uL -- Normal range between ( 0.00 and 0.80 ) [place] %: 9.8 % -- Normal range between ( 3.0 and 9.0 ) Baso %: 0.3 % -- Normal range between ( 0.0 and 1.5 ) Baso #: 0.02 x10(3)/uL -- Normal range between ( 0.00 and 0.20 ) RDW: 14.2 % -- Normal range between ( 11.7 and 14.9 ) Neut %: 59.8 % -- Normal range between ( 34.0 and 71.0 ) Neut #: 3.89 K/uL -- Normal range between ( 1.56 and 6.13 ) Lymph %: 27.0 % -- Normal range between ( 19.3 and 53.1 ) Lymph #: 1.76 x10(3)/uL -- Normal range between ( 1.00 and 3.90 ) MPV: 10.9 fL -- Normal range between ( 9.4 and 12.4 ) IG#: 0.01 x10(3)/uL -- Normal range between ( 0.00 and 0.05 ) IG%: 0.20 % -- Normal range between ( 0.00 and 0.60 ) Microbiology 12/03/2019 1:07 PM Novel Coronavirus 2019: Not Detected General Chemistry 12/06/2019 12:49 PM Creatinine Level: 0.80 mg/dL -- Normal range between ( 0.55 and 1.02 ) Sodium Level: 140 mmol/L -- Normal range between ( 136 and 146 ) Potassium Level: 4.1 mmol/L -- Normal range between ( 3.5 and 5.1 ) Chloride Level: 109 mmol/L -- Normal range between ( 102 and 112 ) Carbon Dioxide Level: 30 mmol/L -- Normal range between ( 21 and 32 ) Anion Gap: 5 -- Normal range between ( 9 and 20 ) Bilirubin Total: 0.7 mg/dL -- Normal range between ( 0.2 and 1.2 ) A/G Ratio: 1.0 -- Normal range between ( 1.1 and 2.5 ) ALT: 30 Units/Liter -- Normal range between ( 13 and 56 ) AST: 20 Units/Liter -- Normal range between ( 5 and 37 ) Globulin: 3.7 Gram/dL -- Normal range between ( 1.5 and 4.5 ) Alk Phos: 84 Units/Liter -- Normal range between ( 27 and 136 ) Bun/Creatinine: 15.0 -- Normal range between ( 8.0 and 20.0 ) Calcium Level: 9.0 mg/dL -- Normal range between ( 8.4 and 10.1 ) eGFR : >60 mL/min/1.73m2 eGFR NonAfrican: >60 mL/min/1.73m2 Glucose Level: 94 mg/dL -- Normal range between ( 74 and 106 ) Blood Urea Nitrogen: 12 mg/dL -- Normal range between ( 7 and 22 ) Protein Total: 7.5 Gram/dL -- Normal range between ( 6.4 and 8.2 ) Albumin Level: 3.8 Gram/dL -- Normal range between ( 3.4 and 5.0 ) Diagnostic Radiology 12/07/2019 9:56 AM CR Fluoro in OR: CR Fluoro in OR Patient Name:FELI WILLIAM I have received this information and was given the opportunity to ask questions. Patient/Stage Settings Painter Name: Patient/Stage Settings Painter Signature: Relationship to Patient: Clinician/Hospital Stage Settings Painter Signature: Date: documented in this encounter Plan of Treatment Not on file documented as of this encounter Visit Diagnoses Not on filedocumented in this encounter
--- OUTSIDE RECORDS SUMMARY | 2024-12-17 09:02 | XMS_ITS | Encounter Summary ---
Author Organization [employer] ([place], [place], [place], [place]) Address [address] [place] [address] Care Team Providers Care Correction Officer Supervisor Name Role Phone Unavailable Primary Care Provider Unavailabl e Encounter Details Date Type Department Care Team (Late st Contact Info) Description 12/07/[address] [facility] [place] Family Medicine [facility] [place] [address] ProviderWanda MD [address] [place] [address] Social History Tobacco Use Types [...] Conversion Note - Wanda ProviderMD - 12/07/2019 8:[address] [facility] Main OR Preop Summary Primary Physician: GIULIA NELSON DPM-SUR Finalized Date/Time: 12/07/19 07:44:35 Pt. Name: FELI WILLIAM/Sex: 1955 Female Med Rec #: [id number] Physician: GIULIA NELSON DPM-SUR Financial #: [id number] Pt. Type: O Room/Bed: /1 Admit/Disch: 12/07/19 06:09:00 - Institution: [facility] PreOp Case Times Entry 1 In Preop 12/07/19 05:49:00 Ready for Holding n/a Room Patient Ready for 12/07/19 07:29:00 Surgery Patient Out of Preop 12/07/19 07:41:00 Patient Out of n/a Holding Room Last Modified By: LEEANNE MOLINA RN 12/07/19 07:42:08 Finalized By: LEEANNE MOLINA RN Document Signatures Signed By: LEEANNE MOLINA RN 12/07/19 07:44 documented in this encounter Plan of Treatment Not on file documented as of this encounter Visit Diagnoses Not on filedocumented in this encounter
--- OUTSIDE RECORDS SUMMARY | 2024-12-17 09:02 | XMS_ITS | Clinical Summary ---
Author Organization [facility] Address [address] [place] [address] Care Team Providers Care Senior Cost Analyst Name Role Phone Unavailable Primary Care Provider Unavailabl e Social History Tobacco Use Types Packs/Day Years Used Date Smoking Tobacco: Every Day Alcohol Use Standard Drinks/Week Comments Yes 0 (1 standard drink = 0.6 oz pur e alcohol) Comments Unknown Sex and Gender Information Value Date Recorded Sex Assigned at Not on file Legal Sex Female 8:34 PM EDT Gender Identity Not on file Sexual Orientation Not on file Last Filed Vital Signs Vital Sign Reading Time Taken Comments Blood Pressure - - Pulse - - Temperature - - Respiratory Rate - - Oxygen Saturation - - Inhaled Oxygen Concentration - - Weight 88.9 kg (196 lb 1 oz) 09/02/2011 3:04 PM EDT Height 152.4 cm (5') 01/04/2011 2:17 PM EDT Body Mass Index 38.29 01/04/2011 2:17 PM EDT Plan of Treatment Not on file
--- OUTSIDE RECORDS SUMMARY | 2024-12-17 09:02 | XMS_ITS | Referral Summary ---
Author Organization [employer] ([place], [place], [place], [place]) Address [address] [place] [address] Care Team Providers Care Financial Investment Manager Name Role Phone Unavailable Primary Care Provider [...]
--- OUTSIDE RECORDS SUMMARY | 2024-12-17 09:02 | XMS_ITS | Encounter Summary ---
Author Organization [employer] ([place], [place], [place], [place]) Address [address] [place] [address] Care Team Providers Care Hospital Coder Name Role Phone Unavailable Primary Care Provider Unavailabl e Encounter Details Date Type Department Care Team (Late st Contact Info) Description 12/07/2019 Transcribed Document [facility] [place] Family Medicine [facility] [place] [address] ProviderWanda MD [address] [place] [address] Social History Tobacco Use Types [...] Conversion Note - Wanda ProviderMD - 12/07/2019 7:17 AM CDT Peripheral Nerve Block Entered On: 12/07/2019 7:20 EDT Performed On: 12/07/2019 7:17 EDT by Joselin Conley RN Peripheral Nerve Block Peripheral Nerve Block End Date/Time : 12/07/2019 7:23 EDT Joselin Conley RN - 12/07/2019 7:23 EDT Peripheral Nerve Block Start Date/Time : 12/07/2019 7:14 EDT Verbally Confirm Pt, Site, and Procedure : Yes Time Out Pause Time : 12/07/2019 7:14 EDT Site Marked and Visible : Yes Site Preparation : Chlorhexidine (Hibiclens) Peripheral Nerve Block : Popliteal Laterality : Right Peripheral Nerve Block Performed by : ADONIS DELGADO MD-ANS Peripheral Nerve Block Assisted by : LEEANNE MOLINA RN Peripheral Nerve Block Assisted by 2 : Joselin Conley RN Ultra sound used during insertion : Yes Catheter Dressing : Occlusive Continuous Catheter Secured with : Tape Nerve Block Activity, Patient Tolerance : Good Joselin Conley RN - 12/07/2019 7:17 EDT Electronically signed by Srikanth [facility] Conversion Chain Testing Machine Operator Cerner at 08/21/2022 12:04 PM CDT documented in this encounter Plan of Treatment Not on file documented as of this encounter Visit Diagnoses Not on filedocumented in this encounter
[2024-12-17 09:19] LABS: Blood Urea Nitrogen 17 mg/dl (7-17); Creatinine,Serum 0.60 mg/dl (0.52-1.04); Estimated Glomerular Filt Rate 99 ml/min (>60); GFR (African American) 120 ML/MIN (>60)
--- NOTE | 2024-12-17 09:30 | CT_ITS ---
FINAL REPORT TECHNIQUE: Axial CT of the abdomen and pelvis, without and with IV contrast. This study was performed with techniques to keep radiation doses as low as reasonably achievable, (ALARA). Individualized dose reduction techniques using automated exposure control or adjustment of mA and/or kV according to the patient's size were employed. CLINICAL HISTORY: Lower abdominal pain/soreness cramping in lower pelvis COMPARISON: None FINDINGS: CT ABDOMEN PELVIS WITH AND WITHOUT CONTRAST: Abdomen: Liver has an unremarkable CT appearance. The spleen, pancreas and adrenal glands are unremarkable. The gallbladder has been surgically resected. Precontrast imaging shows no renal stone disease. Postcontrast imaging of the kidneys shows no mass or obstruction. No bowel obstruction or fluid collection is seen. Pelvis: The appendix is normal in appearance. There is abnormal wall thickening of the proximal sigmoid colon with associated stranding, with the wall thickness measuring up to 16 mm in size, and somewhat eccentric. Associated diverticula are present in the sigmoid colon. Contrast does pass through this segment of sigmoid colon. This may represent diverticulitis, although the eccentricity suggests the possibility of neoplasm. The uterus has been surgically resected. No fluid collection or adenopathy is seen. IMPRESSION: 1. Abnormal wall thickening of the proximal sigmoid colon, somewhat eccentric and measuring 16 mm in size. This may be secondary to diverticulitis, although neoplasm is not excluded. Would recommend GI consult and colonoscopy for further evaluation. Reviewed, Interpreted and Dictated by Ginette Verdugo MD Transcribed by Prachi Woo Authenticated and [facility]
[2024-12-17] MEDS: BARIUM SULFATE(READI-CAT2);450ML BOTTLE 450 ML PO (09:59)
[2024-12-17] MEDS: IOPAMIDOL-370 (76%);100ML BOTTLE 75 ML IV (09:59)
[2024-12-17] MEDS: SODIUM CHLORIDE 0.9% 10ML SYR (RAD ONLY) 10 ML IV (09:59)
== END 2024-12-17 23:59 | disposition home or self-care (01) ==
PROVIDERS: PCP Family Medicine; Visit Provider Internal Medicine Gastroenterology
DX: R93.3 Abnormal findings on diagnostic imaging of other parts of digestive tract (principal); R10.30 Lower abdominal pain, unspecified; R14.0 Abdominal distension (gaseous); R10.2 Pelvic and perineal pain
CPT/HCPCS: 36415; 74178; 82565; 84520; Q9967

== ENCOUNTER 2025-01-05 06:02 | Day surgery (SDC) | payer MEDICARE, SELFPAY ==
[2024-12-31 09:06] VITALS: BMI 40.4
--- NOTE | 2025-01-04 07:43 | EXP.HP ---
History of Present Illness *Admission Date: 01/05/25 *History of present illness: Mrs. William is a 69-year-old female who is here for diagnostic colonoscopy as a referral from DENTAL LABORATORY SUPERVISOR (Dr. Mary Lou Hwang) secondary to diarrhea and abdominal pain. The patient does state that over the last 4 months she has had increasing soreness in the lower abdomen with bloating. She did go to see her DENTAL LABORATORY SUPERVISOR (Dr. Hwang) who felt this was bowel/GI related rather than DENTAL LABORATORY SUPERVISOR etiology. She does have some urge bladder incontinence. The patient also has some defecatory difficulties with alternating hard to loose stools. She will sometimes have bowel urgency and diarrhea later in the day but her bowel movements vary on a daily basis. She often feels incomplete defecation and has excessive wiping. Sometimes when she urinates she will also have to wipe and has stool on the tissue. She does report cramps and pain in the right and left lower quadrant with bloating. She reports little gassiness. She reports no weight loss or family history of colon cancer. She reports no rectal bleeding but does note mucus with her bowel movements. The patient did have a colonoscopy with Dr. Robert Rogers in May 2021. She did state that everything was normal. Random biopsies of the colon at that time were normal. The report states that she had moderate diverticulosis of the sigmoid colon and the patient was not aware of this. She does state that her brother had IBD with bowel resection. [facility] Disclaimer: The information contained in this section may have been updated after the patient was seen, as this information can be updated by other users. Medical History Hysterectomy planned Endometriosis Hypertension Anxiety and depression Surgical History H/O Achilles tendon repair History of cholecystectomy S/P DESMOND-BSO Family History Father Lung cancer Social History (Updated 01/05/25 @ 06:18 by Mayra Woodson RN) Smoking Status: Never smoker alcohol intake: current alcohol intake frequency: holidays/special occasions only substance use type: denies use current occupational status: retired Travel in the last 8 weeks?: None Have you lived/traveled outside US in past 30 days?: No Contact w/someone who lives/traveled outside US past 30 days?: No Exposure to someone with infectious disease in past 14 days?: No Do you have a fever (greater than 100.4 F or 38 C)?: No Have you tested positive for COVID-19?: No Exposed to someone with COVID-19 in past 14 days?: No Do you have a sore throat?: No Do you have a cough?: No Do you have any weakness?: No Are you experiencing any nausea/vomitting?: Yes Do you have any diarrhea?: No Are you experiencing any unusual bleeding?: No Do you have any muscle aches/pain?: No Do you have any abdominal pain?: No Are you experiencing loss of taste or smell?: No Other Medical History Have you received the Pneumonia Vaccine: No Review of Systems Review of Systems Review of systems (narrative): Negative *Cardiovascular Comments: Negative *Gastrointestinal Comments: Negative *Genitourinary Comments: Negative *Musculoskeletal Comments: Negative *Neurologic Comments: Negative Meds Home Medications and Allergies Home Medications ?Medication ?Instructions ?Recorded ?Confirmed ?Type atenolol 25 mg tablet 25 mg PO DAILY 11/17/24 01/05/25 History biotin 10,000 mcg capsule 10,000 mcg PO DAILY 11/17/24 01/05/25 History bupropion HCl 150 mg 24 hr tablet, 150 mg PO ONCE 11/17/24 01/05/25 History extended release esomeprazole magnesium 40 mg 40 mg PO DAILY 11/17/24 01/05/25 History capsule,delayed release sodium,potassium,mag sulfates 17.5 See Rx Instructions PO .COMPLEX 12/24/24 01/05/25 Rx gram-3.13 gram-1.6 gram oral soln #354 mL (Suprep Bowel Prep Kit) New Prescriptions to Start Prescriptions: Allergies Allergy/AdvReac Type Severity Reaction Status Date / Time No Known Allergies Allergy Verified 01/05/25 06:30 Exam *Routine HEENT Exam Head: Present normocephalic Eye: Present EOMI and PERRL ENT: Present mucous membranes moist *Routine Neck Exam Neck: Present supple *Routine Respiratory Exam Respiratory: Present CTA bilaterally *Routine Cardiovascular Exam Cardiovascular: Present RRR *Routine Abdominal Exam Abdominal: Present soft and normoactive bowel sounds; Absent tenderness *Routine Rectal Exam Rectal:: deferred *Routine Genitalia Exam Genitalia:: deferred *Routine Extremities Exam Extremities: Absent cyanosis, clubbing or edema *Routine Skin Exam Skin: Present warm; Absent rash *Routine Neurological Exam Neurological: Present alert and oriented X3 Assessment and Plan *Assessment and plan (1) Lower abdominal pain: Status: Acute Category: Medical Code(s): R10.30 - Lower abdominal pain, unspecified (2) Bloating: Status: Acute Category: Medical Code(s): R14.0 - Abdominal distension (gaseous) (3) Incomplete defecation: Status: Acute Category: Medical Code(s): R15.0 - Incomplete defecation (4) Diverticular disease: Status: Acute Category: Medical Code(s): K57.90 - Diverticulosis of intestine, part unspecified, without perforation or abscess without bleeding Plan A/P: 1. Lower abdominal pain and bloating with incomplete defecation is the preprocedural diagnosis. The patient does have a history of diverticular disease. The patient will be anesthetized/sedated using MAC sedation. The patient has been seen and examined. Cardiac and lung assessment prior to the examination is stable. Proceed with planned diagnostic colonoscopy.
[2025-01-05 06:17] VITALS: BP 146/93; PULSE 71; RESP 18; TEMP 36.7; O2SAT 98; BMI 40.4
[2025-01-05] MEDS: LACTATED RINGERS 1000ML 1,000 ML 50 ML IV (06:39)
--- NOTE | 2025-01-05 07:01 | P.PNANES_ITS ---
[facility] Disclaimer: The information contained in this section may have been updated after the patient was seen, as this information can be updated by other users. Medical History Hysterectomy planned Endometriosis Hypertension Anxiety and depression Surgical History H/O Achilles tendon repair History of cholecystectomy S/P DESMOND-BSO Family History Father Lung cancer Social History (Updated 01/05/25 @ 06:18 by Mayra Woodson RN) Smoking Status: Never smoker alcohol intake: current alcohol intake frequency: holidays/special occasions only substance use type: denies use current occupational status: retired Travel in the last 8 weeks?: None Have you lived/traveled outside US in past 30 days?: No Contact w/someone who lives/traveled outside US past 30 days?: No Exposure to someone with infectious disease in past 14 days?: No Do you have a fever (greater than 100.4 F or 38 C)?: No Have you tested positive for COVID-19?: No Exposed to someone with COVID-19 in past 14 days?: No Do you have a sore throat?: No Do you have a cough?: No Do you have any weakness?: No Are you experiencing any nausea/vomitting?: Yes Do you have any diarrhea?: No Are you experiencing any unusual bleeding?: No Do you have any muscle aches/pain?: No Do you have any abdominal pain?: No Are you experiencing loss of taste or smell?: No [facility] Anesthesia Checklist Patient Identification Patient Identification: Arm Band and Family Structural Data Admitted From: Home Planned Operative Procedure/s: Colonoscopy Consent for Planned Operative Procedure(s) Verified: Yes Verified Documents: Surgical Consent and History and Physical NPO Status Verified Time NPO: 00:00 Additional verifications Patient : No Anesthesia Reactions: No Hx Blood Transfusions: No Blood Transfusion Reaction: No Cephalosporin Allergy: No Previous Colonoscopy: Yes Airway Assessment Mallampati Score:: Class II C-Spine Mobility Assessed: Yes TMJ Mobility Assessed: Yes Dentition: Partials Neurological Assessment Level of Consciousness: Awake, Alert, Appropriate and Follows Commands Hx Seizures: No Numbness or tingling in extremities: No Anesthesia Plan Anesthesia Risk discussed: Yes ASA Class: II Anesthesia Type: MAC
--- NOTE | 2025-01-05 07:31 | HMH.PROCNOTE ---
[facility] Procedure Note Date: 01/05/25 Time: 07:49 Procedure Note:: Colonoscopy Procedure Report: Colonoscopy with cold snare polypectomy and cold biopsies Endoscopist: Arya Coleman II, MD Referring physician: Lizbeth Fernandes MD, [address] [place] [address] [address] [place] [address] Date of Procedure: January 05, 2025 Equipment: Olympus [id number] adult colonoscope Sedation: MAC sedation Indication: Mrs. William is a 69-year-old female who is here for diagnostic colonoscopy. She is a referral from RECRUITER ACCOUNT MANAGER (Dr. Mary Lou Hwang) secondary to diarrhea and abdominal pain. The patient does state that over the last 5-6 months she has had increasing soreness in the lower abdomen with bloating. She did go to see her RECRUITER ACCOUNT MANAGER (Dr. Hwang) who felt this was bowel/GI related rather than RECRUITER ACCOUNT MANAGER etiology. She does have some urge bladder incontinence. The patient also has some defecatory difficulties with alternating hard to loose stools. She will sometimes have bowel urgency and diarrhea later in the day but her bowel movements vary on a daily basis. She often feels incomplete defecation and has excessive wiping. Sometimes when she urinates she will also have to wipe and has stool on the tissue. She does report cramps and pain in the right and left lower quadrant with bloating. She reports little gassiness. She reports no weight loss or family history of colon cancer. She reports no rectal bleeding but does note mucus with her bowel movements. The patient did have a colonoscopy with Dr. Robert Rogers in May 2021. She did state that everything was normal. Random biopsies of the colon at that time were normal. The report states that she had moderate diverticulosis of the sigmoid colon and the patient was not aware of this. She does state that her brother had IBD with bowel resection. I had recommended dietary measures, fiber bowel regimen (MiraLAX plus Konsyl) and Beano. She had tried the MiraLAX plus Konsyl and Beano for 2 weeks and this did not help. Procedure: Prior to the procedure, a history and physical exam was performed, and patient's medications and allergies were reviewed. The risks, benefits and alternatives of the sedation and procedure were discussed with the patient. All questions were answered and informed consent was obtained. The patient was brought to the procedure room. Patient identification and proposed procedure were verified by the physician and the nurse. The patient was placed in a left lateral decubitus position and the scope was passed under direct vision. Throughout the procedure, the patient's blood pressure, pulse, and oxygen saturations were monitored continuously. The colonoscopy was accomplished without difficulty. The patient tolerated the procedure well. Findings: On digital rectal examination there was normal rectal tone. There were no external hemorrhoids. The colonoscope was introduced through the anal canal to the rectum and advanced to the cecum. The ileocecal valve and appendiceal orifice were identified. The scope was advanced a short distance into the ileum which appeared grossly normal. The scope was then withdrawn into the colon. There were 3 diminutive polyps (transverse x 2 (3 and 4 mm) and descending x 1 (4 mm)). These were all removed via cold snare polypectomy. The remaining cecum, ascending and transverse colon and mucosa were grossly normal. There were scattered diverticuli throughout the descending and sigmoid colon (LEFT colon). The rectum itself was normal. Upon retroflexion within the rectum there were grade 1 internal hemorrhoids. The preparation was excellent throughout with [place] Preparation Score of 9. The cecal time was 12 minutes. Impression: 1. Diminutive colonic polyps x 3 2. Left-sided diverticulosis 3. Grade 1 internal hemorrhoids Plan: I will follow-up the polyp histology and recommend repeat screening/surveillance colonoscopy again in 5 years if the polyps are adenomatous. I do feel that the patient has spastic diverticular disease or smoldering chronic diverticulitis. I would encourage continuation of the dietary measures. I would encourage bulking fiber (FiberCon). We will consider additional treatment options to include treatment for visceral sensitivity and spasm. I will discuss the findings with the patient and family.
[2025-01-05 07:53] VITALS: BP 120/55; PULSE 64; RESP 16; TEMP 36.3; O2SAT 94
[2025-01-05 08:03] VITALS: BP 124/64; PULSE 64; RESP 18; O2SAT 97
[2025-01-05 08:13] VITALS: BP 128/87; PULSE 67; RESP 18; O2SAT 100
[2025-01-05 08:23] VITALS: BP 149/83; PULSE 68; RESP 18; O2SAT 100
== END 2025-01-05 08:23 | disposition home or self-care (01) ==
PROVIDERS: Visit Provider Internal Medicine Gastroenterology
PROC: 0DJD8ZZ Inspection of Lower Intestinal Tract, Via Natural or Artificial Opening Endoscopic (ICD-10-PCS; CPT 45378; principal; 2025-01-05 07:30)
DX: D12.3 Benign neoplasm of transverse colon (principal); K63.5 Polyp of colon; K57.90 Diverticulosis of intestine, part unspecified, without perforation or abscess without bleeding; K64.0 First degree hemorrhoids; Z83.79 Family history of other diseases of the digestive system; I10 Essential (primary) hypertension; F41.9 Anxiety disorder, unspecified; F32.A Depression, unspecified; Z79.899 Other long term (current) drug therapy
CPT/HCPCS: 45385; 88305; J2003; J2704; J7120